=== PATIENT | female | born 1990 | race Caucasian/White ===

== ENCOUNTER 2019-05-26 18:08 | Emergency (ER) | payer MEDICAID, SELFPAY ==
[2019-05-26 18:10] VITALS: BP 160/97; PULSE 93; RESP 14; TEMP 36.6; O2SAT 100
[2019-05-26 18:29] LABS: Bilirubin Negative (Negative); Blood Negative (Negative); Clarity Clear (Clear); Glucose Negative (Negative); Ketones Negative (Negative); Leukocyte Esterase Negative (Negative); Nitrite Negative (Negative); Urobilinogen 0.2 EU/dL (Up TO 0.2); pH 6.5 (5-8)
--- NOTE | 2019-05-26 18:34 | ED.GENADUL_ITS ---
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 Clinical Impression: First trimester Primary Care Provider: Winifred Sierra ED Provider: Timmy Rod Home Meds and New Rx's Prescriptions: Continued folic acid 1 mg Tablet 4 mg PO DAILY RF: 0 PNV cmb#95-ferrous fumarate-FA [] 28 mg iron- 800 mcg Tablet 1 tab PO DAILY RF: 0 No Action levothyroxine 50 mcg Tablet 50 mcg PO DAILY RF: 0 lamotrigine [Lamictal] 100 mg Tablet 100 mg PO DAILY RF: 0 aripiprazole [Abilify] 5 mg Tablet 5 mg PO DAILY RF: 0 melatonin 3 mg Tablet,Disintegrating 3 mg PO HS PRNRF: 0 Discharge Instructions Additional Instructions: Please make an appointment to follow-up with obstetrics this week. Your beta hCG level today was 1835. Your urine did not show evidence of infection, there was no protein present. Home to rest tonight. Continue to push small, frequent sips of fluids to maintain hydration. Return for any acute concerns Medical Decision Making 29-year-old female presents from home with 2 days of intermittent episodes of urinary frequency, urgency, burning. States that she believes she is due to last menstrual. Approximately 2 months ago, positive home test 1 week ago. She has not had any vaginal bleeding nor abdominal discomfort. She is noted to have initial blood pressure 160/97. Otherwise unremarkable vital signs and reassuring exam. Urinalysis and screening beta hCG obtained. Urine does not show evidence of infection with negative leuk esterase, negative nitrates. Protein was negative as well. Beta hCG is 1835. Patient informed of results. She will followup with OB at [facility] as planned. HPI General Mode of arrival: ambulatory . Date/Time Provider Initiated Documentation: 05/26/19 18:09 . Limitations to Documentation: no limitations . Information obtained by: patient and family . History of Present Illness 29 year old F presents to the emergency department with the chief complaint of Increased urinary frequency and urgency over 2 days time. + home , described as mild, Quality is described as dull, and is localized to the pelvis. Patient reports no radiation. Patient started experiencing this day(s) and it has been constant. No relieving factors improve symptom(s), No exacerbating factors reported . Patient did receive the following treatments prior to arrival, none Related Data Home Medications Medication Instructions Recorded Confirmed PNV cmb#95-ferrous fumarate-FA 1 tab PO DAILY 05/26/19 05/26/19 [] aripiprazole [Abilify] 5 mg PO DAILY 05/26/19 05/26/19 folic acid 4 mg PO DAILY 05/26/19 05/26/19 lamotrigine [Lamictal] 100 mg PO DAILY 05/26/19 05/26/19 levothyroxine 50 mcg PO DAILY 05/26/19 05/26/19 melatonin 3 mg PO HS PRN 05/26/19 05/26/19 Allergies Allergy/AdvReac Type Severity Reaction Status Date / Time erythromycin base Allergy Unverified 05/26/19 18:15 sulfamethoxazole Allergy Unverified 05/26/19 18:15 [From Bactrim] trimethoprim [From Bactrim] Allergy Unverified 05/26/19 18:15 cigarette smoke AdvReac Mild head Unverified 07/22/15 13:28 congestion General 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 No recent illness. 6 systems reviewed and otherwise negative [facility] Social History Smoking/Tobacco Use Status: Never Alcohol Intake: never Drug use: Never Substance use type: does not use Do you feel safe at home: Yes Do you feel safe in your relationship?: Yes Exam Narrative Exam Narrative: GEN: awake, alert, oriented 3. Pleasant, well groomed, interactive. HEAD: Normocephalic, atraumatic ENT: Mucous membranes moist, oropharynx unremarkable, External ear exam unremarkable EYES: PERRL, EOMI NECK: Full ROM, no ALBERT, no menigismus CHEST/RESP: Nontender, clear to auscultation bilateral, no wheeze/rhonchi/rales CARDIOVASCULAR: RRR, no murmur, rub jany. 2+ Rad pulse bilateral ABDOMEN: Soft, nontender, no mass. +Bowel sounds EXT: Full ROM, no edema, no rash Neuro: Grossly normal neurologic exam, conversant, interactive. Psych: Speech fluent, thoughts congruent, affect normal Course Vital Signs Temperature 36.6 C 05/26/19 18:10 Pulse 93 H 05/26/19 18:10 Respiratory Rate 14 05/26/19 18:10 Blood Pressure 160/97 H 05/26/19 18:10 Pulse Oximetry 100 05/26/19 18:10 Temperature 36.6 C 05/26/19 18:10 Pulse 93 H 05/26/19 18:10 Respiratory Rate 14 05/26/19 18:10 Respiratory Effort Non-Labored 05/26/19 18:13 Blood Pressure 160/97 H 05/26/19 18:10 Blood Pressure Position Sitting 05/26/19 18:10 Pulse Oximetry 100 05/26/19 18:10 Pain Level 5 05/26/19 18:14 Lab/Test Results Lab/Test Results: Laboratory Tests Range/Units 05/26/19 18:23 Urine Color (Yellow) Yellow Urine Clarity (Clear) Clear Urine pH (5-8) 6.5 Ur Specific [place] (1.005-1.025) 1.010 Urine Protein (Negative) mg/dL Negative Urine Ketones (Negative) mg/dL Negative Urine Blood (Negative) Negative Urine Nitrite (Negative) Negative Urine Bilirubin (Negative) Negative Urine Urobilinogen (Up TO 0.2) EU/dL 0.2 Ur Leukocyte Esterase (Negative) Negative Urine Glucose (Negative) mg/dL Negative POC- Test(urine) Positive
[2019-05-26 19:29] LABS: HCG Quant, Pregnancy 1835 mIU/mL (1-3)
[2019-05-26 19:43] VITALS: BP 129/87; PULSE 85; RESP 18; O2SAT 99
== END 2019-05-26 19:45 | disposition home or self-care (01) ==
PROVIDERS: Emergency Provider Emergency Medicine; PCP Internal Medicine
DX: R35.0 Frequency of micturition; R03.0 Elevated blood-pressure reading, without diagnosis of hypertension; Z32.01 Encounter for pregnancy test, result positive
CPT/HCPCS: 36415; 81025; 99282; 81003; 84702

== ENCOUNTER 2020-04-30 23:52 | Inpatient (IN) | payer MEDICAID, SELFPAY ==
[2020-04-30 23:53] VITALS: BP 151/86; PULSE 88; RESP 16; TEMP 36.9; O2SAT 98
--- NOTE | 2020-04-30 23:58 | W.ED.GENAD ---
Discharge Plan Disposition Patient Disposition: [facility] INPATIENT Condition: Stable Discharge Details Chief Complaint: PsychEval Clinical Impression: Depressed, Suicidal ideations Primary Care Provider: Winifred Sierra ED Provider: Alis Steele Home Meds and New Rx's Prescriptions: No Action levothyroxine 50 mcg Tablet 50 mcg PO DAILY RF: 0 folic acid 1 mg Tablet 4 mg PO DAILY RF: 0 lamotrigine [Lamictal] 100 mg Tablet 150 mg PO DAILY RF: 0 aripiprazole [Abilify] 5 mg Tablet 5 mg PO DAILY RF: 0 PNV cmb#95-ferrous fumarate-FA [] 28 mg iron- 800 mcg Tablet 1 tab PO DAILY RF: 0 melatonin 3 mg Tablet,Disintegrating 3 mg PO HS PRNRF: 0 methylphenidate HCl [Concerta] 36 mg Tablet Extended Release 24hr 36 mg PO QAM RF: 0 albuterol sulfate 2.5 mg /3 mL (0.083 %) Solution For Nebulization 2.5 mg INHALATION Q4H PRNRF: 0 Flovent HFA 220 mcg/actuation Hfa Aerosol Inhaler 1 puff INHALATION BID RF: 0 Medical Decision Making <Broderick Haque, - Last Filed: 05/01/20 05:07> 30-year-old female with a past history of PTSD, depression, anxiety, seizure disorder, presents today for evaluation of suicidality. Patient is , keeps her medications locked up to prevent any overdosing, which she has tried to do in the past. She spends rest of her day with her [id number] who per care bed staff is verbally abusive. She has been at the care bed recently secondary to suicidality. This evening she became notably upset, was hitting her self on her shins and her head, stating that someone was touching her although no one was touching her. When confronted by staff she stated that she had a very focused plan on how she was going to kill herself but would not admit it to anyone what the plan details were. She also stated that she did not trust men and would not tell anyone about this. She denies taking any additional medications, she denies any recent drugs or alcohol. She denies any nausea vomiting diarrhea chest pain shortness of breath numbness tingling or weakness. No other complaints. She states that she has tried to cut herself in the past, but that is not her plan to kill herself tonight. She denies any auditory visual hallucinations. She has no other complaints at this time. Physical exam demonstrates mild bruising on the right paul, no evidence of trauma to the head. Multiple old scars that are completely healed on the arms and legs bilaterally. At this time with the patient's clear plan that she will not described to myself or staff, certainly does elicit concern. She states that she does want help. I do feel that she is a risk to her self and would benefit from admission evaluation by mental health specialist. Patient appears medically cleared for all intents and purposes at this time. We will look for potential admission and transfer options. 5 AM Patient has been seen and assessed by mental health, it is felt that transfer to an outpatient facility is best for this patient for further mental health evaluation. Currently the patient does want help. We will keep the patient here in the emergency department and mental health will in the morning for potential placement versus transfer options. The case will be signed out to my colleague Dr. Steele for reassessment and hopeful final disposition. <Alis Steele DO - Last Filed: 05/01/20 19:44> 0800 --Case endorsed to follow-up with mental health regarding placement. Patient is currently voluntary. 1400 --patient complaining of feelings of anxiety. A 0.5 mg dose of Ativan p.o. given. 1700 --Case discussed with mental health -patient has stated that she does not want to be stopped from harming herself and there is concern for her impulsivity and possible change in behavior so decision was made to EE. 1730 --Case discussed with hospitalist who accepts patient for admission. Patient has been appropriate and no acute complaints. Medical Records Medical records reviewed: Yes I reviewed the patient's medical records. HPI <Broderick Haque DO - Last Filed: 05/01/20 05:07> General Date/Time Provider Initiated Documentation: 04/30/20 23:54. HPI Narrative: 30-year-old female with a past history of PTSD, depression, anxiety, seizure disorder, presents today for evaluation of suicidality. Patient is , keeps her medications locked up to prevent any overdosing, which she has tried to do in the past. She spends rest of her day with her [id number] who per care bed staff is verbally abusive. She has been at the care bed recently secondary to suicidality. This evening she became notably upset, was hitting her self on her shins and her head, stating that someone was touching her although no one was touching her. When confronted by staff she stated that she had a very focused plan on how she was going to kill herself but would not admit it to anyone what the plan details were. She also stated that she did not trust men and would not tell anyone about this. She denies taking any additional medications, she denies any recent drugs or alcohol. She denies any nausea vomiting diarrhea chest pain shortness of breath numbness tingling or weakness. No other complaints. She states that she has tried to cut herself in the past, but that is not her plan to kill herself tonight. She denies any auditory visual hallucinations. She has no other complaints at this time. Related Data Home Medications Medication Instructions Recorded Confirmed PNV cmb#95-ferrous fumarate-FA 1 tab PO DAILY 05/26/19 05/01/20 [] aripiprazole [Abilify] 5 mg PO DAILY 05/26/19 05/01/20 folic acid 4 mg PO DAILY 05/26/19 05/01/20 lamotrigine [Lamictal] 150 mg PO DAILY 05/26/19 05/01/20 levothyroxine 50 mcg PO DAILY 05/26/19 05/01/20 melatonin 3 mg PO HS PRN 05/26/19 05/01/20 albuterol sulfate 2.5 mg INHALATION Q4H PRN 05/01/20 05/01/20 fluticasone propionate [Flovent 1 puff INHALATION BID 05/01/20 05/01/20 HFA] methylphenidate HCl [Concerta] 36 mg PO QAM 05/01/20 05/01/20 Allergies Allergy/AdvReac Type Severity Reaction Status Date / Time erythromycin base Allergy Unverified 05/01/20 00:07 sulfamethoxazole Allergy Unverified 05/01/20 00:07 [From Bactrim] trimethoprim [From Bactrim] Allergy Unverified 05/01/20 00:07 cigarette smoke AdvReac Mild head Unverified 05/01/20 00:07 congestion General SHAI: 3 Review of Systems <Broderick Haque DO - Last Filed: 05/01/20 05:07> All systems reviewed & are unremarkable except as noted in HPI and below PFSH <Broderick Haque DO - Last Filed: 05/01/20 05:07> Social History Smoking/Tobacco Use Status: Never Alcohol Intake: never Drug use: Never Substance use type: does not use Do you feel safe at home: Yes Do you feel safe in your relationship?: Yes Exam <Broderick Haque DO - Last Filed: 05/01/20 05:07> Narrative Exam Narrative: 1.Const: Well-nourished, Well-developed, appearing stated age 2.Eyes: PERRL, no conjunctival injection, and symmetrical lids. 3.ENT: Atraumatic external nose and ears. Moist MM. Neck: Symmetric, trachea midline, No thyromegaly. There is no evidence of raccoon eyes, aburto sign, CSF rhinorrhea, mastoid tenderness, cranial crepitus, hemotympanum, exophthalmos, or hyphema. Patient demonstrates intact dentition with no signs of tooth avulsion or fracture, no signs of jaw deformity, no evidence of a LeFort's fracture, with an intact palate, nose and orbital region. There is no evidence of a nasal septal hematoma. No proptosis. Jaw closes symmetrically. Airway is clear. 4.CVS: +S1/S2, No murmurs or gallops. Peripheral pulses 2+ and equal in all extremities. Brisk capillary refill in all extremities. 5.RESP: Unlabored respiratory effort. Clear to auscultation bilaterally. No wheezes rales or rhonchi 6.GI: Soft, Nontender/Nondistended, No hepatosplenomegaly. No guarding or rebound. 7.MSK: Normocephalic/Atraumatic, Extremities w/o deformity or ttp No cyanosis or clubbing, Normal movement of all extremities 8.Skin: Warm, Dry. No rashes or lesions. Mild bruise/contusion on her anterior paul on the right. 9.Neuro: supervisor cook house II-XII grossly intact. Sensation grossly intact, no focal neurologic deficits. 10.Psych: (AAO) x3. Appropriate mood and notably flat affect Sign Out <Broderick Haque DO - Last Filed: 05/01/20 05:07> Sign Out Data: Sign Out Comment: Depression, suicidal ideations. Medically cleared. Pending reevaluation by mental health and potential transfer versus placement. Last updated by Broderick Haque DO at 05/01/20 05:08
[2020-05-01 00:21] LABS: *AMPHETAMINES SCREEN URINE Negative (Negative); *BARBITURATES SCREEN URINE Negative (Negative); *BENZODIAZEPINES SCREEN URINE Negative (Negative); Cannabinoids THC Negative (Negative); Cocaine Screen,Urine Negative (Negative); METHADONE URINE SCREEN Negative (Negative); OPIATES URINE SCREEN Negative (Negative)
[2020-05-01 00:31] LABS: Tricyclic Antidepressants Negative (Negative)
[2020-05-01 02:43] LABS: Abs Immature Grans 0.04 k/cumm (0.0-0.09); Absolute Basophil Count 0.02 k/cumm (0.0-0.2); Absolute Lymphocyte Count 3.09 k/cumm (1.2-3.4); Absolute Monocyte Count 0.71 k/cumm (0.11-0.7); Absolute Neutrophil Count 5.47 k/cumm (1.2-6.7); Basophils % 0.2; Eosinophils % 1.1; HGB 13.4 g/dL (12.0-15.5); Immature Grans % 0.4 %; Lymphocytes % 32.8; Mean Corp. HGB Concentration 33.5 g/dL (32.0-36.0); Mean Corpuscular Hemoglobin 28.6 pg (27.0-33.0); Mean Corpuscular Volume 85.5 fL (80-95); Mean Platelet Volume 10.2 fL (8.0-11.0); Monocytes % 7.5; Platelet Count 279 x1000/uL (130-400); RBC 4.68 m/cumm (4.00-5.20); RBC Distribution Width 12.7 % (11.7-14.6); White Blood Cell Count 9.43 k/cumm (4.4-10.8)
[2020-05-01 03:03] LABS: Acetaminophen < 2 ug/mL (10-30); Salicylate < 2.8 mg/dL (2.8-20.0)
[2020-05-01 03:04] LABS: Anion Gap 9.1 mmol/L (3-11); BUN 13 mg/dL (7-18); CO2 26.9 mmol/L (21.0-32.0); CREATININE 0.84 mg/dL (0.55-1.02); Calcium 9.6 mg/dL (8.5-10.1); Chloride 102 mmol/L (98-107); Glucose 104 mg/dL (74-106); Potassium 3.9 mmol/L (3.5-5.1); Sodium 138 mmol/L (136-145); TSH 2.26 uIU/mL (0.36-3.74)
[2020-05-01 03:16] LABS: ETHANOL BLOOD < 3.0 mg/dL (<3)
--- NOTE | 2020-05-01 04:51 | NUR.NOTE ---
Nursing Note: phone numbers for pt use per mental health ( Kristyn)- [phone]- Nathalia @ [facility] [phone] - Kristyn Meehan
--- NOTE | 2020-05-01 08:28 | CMPROGNOTE_ITS ---
- If Service Date Differs Date of service: 05/01/20 Time of Service: 08:28 Care Management Progress Note Chief Complaint: Stacey is a 30 year old female who lives in [place] with her , Chucky. She receives services through [facility] DUPLICATOR PUNCH OPERATOR program in [place] and her supervisor case loading is Ashley Nolen. Stacey has a history of PTSD, depression and anxiety. She has been staying at the [facility] Care Bed since evening due to suicidality but on Friday, she endorsed worsening suicidal thoughts and flashbacks. She began punching herself, banging her head, and threatening to hang herself with the TV power cord. She was subsequently transported to the ED via ambulance where she was assessed by an [facility] crisis screener. The plan was made to reassess Stacey in the morning and to decide how to proceed at that time. This morning, Stacey was reassessed by her supervisor case loading, Ashley Nolen. She expressed a desire to return to the Care Bed during that assessment. Ashley is currently exploring if the Care Bed is still an option available to Stacey. VOLUNTARY FOR INPATIENT PSYCHIATRIC STABILIZATION. Patient is appropriate in all interactions since arriving at [facility]; Pt has demonstrated appropriate coping and communication skills, has articulated her needs and concerns and is fully engaged during staff interactions. Safety plan has been established with patient, and care team, to adhere to patient goals, identify restrictions based on behavioral status, address nutrition, and determine allowed personal belongings, tools for hygiene and personal care. Determine level of activity including ambulation, level of supervision, visitors, and determine privileges based on behaviors and level of engagement by pt. SAFETY PLAN: 1. Will remain on suicide precautions. In Paper Clothes 2. Will remain in room under direct supervision of one-on-one staff at all times provided by [facility]; CIRILO, MATERIALS DEVELOPMENT ENGINEER medical services coordinator. 3. May have paper cups, plates, finger foods as well as a cardboard spoon with which to eat meals. 4. Follow [facility] Management of the Admitted Behavioral Health Patient policy. 5. Comfort bath system only while in the ED. If moved to Med/Surg, patient will be allowed to shower with supervision at nursing discretion. 6. No personal belongings 7. Visitors-No visitors at this time 8. Activities: Soft tip markers, paper, and other activities at nursing discretion. If moved to Med/Surg, patient will be allowed television. 9. Bathroom privileges: While in the ED, must be accompanied by staff. If patient is moved to Med/Surg, she will be allowed to use the bathroom in her room without supervision. 10. Phone: No phone privileges at this time. 11. Due to VOLUNTARY status, if patient wishes to leave [facility], the [facility] sheet metal worker must be contacted to re-evaluate patient prior to patient exiting the building. Patient is currently voluntarily at [facility] and seeking inpatient admission when a bed becomes available. [facility] Frontline Vat Operator will continue seeking placement. Please contact the Meter Supervisor Animal Feeder ([phone]) and [facility] Vat Operator ([phone]) for any needed changes in the Safety Plan. Safety plan has been provided to interdepartmental care team.
--- NOTE | 2020-05-01 11:25 | NUR.NOTE ---
per mental health, they are checking to see if patient can return to the carebed and have her meds managed there or if she needs to go elsewhere.
[2020-05-01] MEDS: LORazepam 0.5 MG TAB PO (14:37)
[2020-05-01 16:02] VITALS: BP 134/87; PULSE 87; RESP 18; TEMP 36.7; O2SAT 96
--- NOTE | 2020-05-01 16:40 | PDOC.MHCN ---
Date of service: 05/01/20 Time of Service: 16:41 Mental Health Crisis Note Presenting Issue How did you arrive at the ED and why did you come: Bibiana came to the ER via ambulance last night/early this am for SI and unwilling to safety plan with CARE Bed team. Precipitating Factors Stacey endorses intense SI with plan but will not share those plans. She did tell Emergency Clinician last night that she had plans to slit her wirist. When asked about this today she said That is not really my detailed plan. She is not showing any signs of delusions. Disposition BEHAVIOR: Stacey is pleasant but very guarded. She has been a non-behavioral patient since she arrived in the ER early this am. She is not willing to go voluntarily to a hospital I don't want to be stopped. Even if she were to say she would go voluntarily I have concerns she would not follow through which would put her at risk. EYE CONTACT: Eye contact is fair and appropriate. MOOD: Stacey presents as depressed. AFFECT: Affect is flat with not range in expressions. APPETITE: Bibiana did eat lunch but refused breakfast. SLEEP(trouble falling/staying asleep: Sleep is unknown but reported by SKIP MINER BLASTING that she has significant nightmares. Plan Due to Stacey's level of SI and unwillingness to share or safety plan she has been placed on EE status pending a second cert. Signature Clinician's Name/Title: Brittany Ramon MS, [facility] Emergency Services Clinician
--- NOTE | 2020-05-01 18:19 | HPE_ITS ---
Date of service: 05/01/20 Time of Service: 18:20 Assessment and Plan Assessment and plan (1) Suicidal ideations: Status: Acute Assessment and plan: SI, here on EE status. No medical issues. Will continue usual meds pending placement. Note that med list includes vitamins. Patient states this is not current. History of Present Illness History of Present Illness Chief Complaint: SI Narrative: 30 female with multiple psychiatric dxx, seen early this AM for suicidal ideation. Evasive as to whether there was any plan. Has been medically cleared. Pending bed availabi lity (and COVID status) is admitted. Note here on EE status. Review of Systems All systems reviewed & are unremarkable except as noted in HPI and below PFSH Social History Smoking/Tobacco Use Status: Never Alcohol Intake: never Drug use: Never Substance use type: does not use Do you feel safe at home: Yes Do you feel safe in your relationship?: Yes Meds Home Medications and Allergies Home Medications Medication Instructions Recorded Confirmed Type PNV cmb#95-ferrous fumarate-FA 1 tab PO DAILY 05/26/19 05/01/20 History [] aripiprazole [Abilify] 5 mg PO DAILY 05/26/19 05/01/20 History folic acid 4 mg PO DAILY 05/26/19 05/01/20 History lamotrigine [Lamictal] 150 mg PO DAILY 05/26/19 05/01/20 History levothyroxine 50 mcg PO DAILY 05/26/19 05/01/20 History melatonin 3 mg PO HS PRN 05/26/19 05/01/20 History albuterol sulfate 2.5 mg INHALATION Q4H PRN 05/01/20 05/01/20 History fluticasone propionate [Flovent 1 puff INHALATION BID 05/01/20 05/01/20 History HFA] methylphenidate HCl [Concerta] 36 mg PO QAM 05/01/20 05/01/20 History Allergies Allergy/AdvReac Type Severity Reaction Status Date / Time erythromycin base Allergy Unverified 05/01/20 00:07 sulfamethoxazole Allergy Unverified 05/01/20 00:07 [From Bactrim] trimethoprim [From Bactrim] Allergy Unverified 05/01/20 00:07 cigarette smoke AdvReac Mild head Unverified 05/01/20 00:07 congestion Exam Narrative Exam Narrative: 134/87, 87, 36.7, 18, 96% RA. HEENT atraumatic; neck supple; lungs clkear; heart RRR w/o mrg; abdomen soft and NT; extremities w/o edema; neuro Ox3, flat affect, moves all 4s. Results Labs Result diagrams: 05/01/20 02:35 05/01/20 02:35 Labs: Laboratory Results - last 24 hr 05/01/20 05/01/20 05/01/20 00:01 02:35 02:35 WBC RBC Hgb Hct MCV MCH MCHC RDW Plt Count MPV Immature Gran % Neutrophils % Lymphocytes % Monocytes % Eosinophils % Basophils % Absolute Neutrophils Absolute Lymphocytes Absolute Monocytes Absolute Eosinophils Absolute Basophils Sodium 138 Potassium 3.9 Chloride 102 Carbon Dioxide 26.9 Anion Gap 9.1 BUN 13 Creatinine 0.84 Estimated GFR/1.73 m2 >= 60.00 Glucose 104 Calcium 9.6 TSH 2.26 Salicylates < 2.8 Urine Opiates Screen Negative Urine Methadone Screen Negative Acetaminophen < 2 Ur Barbiturates Screen Negative Ur Tricyclics Screen Negative Ur Amphetamines Screen Negative U Benzodiazepines Scrn Negative Urine Cocaine Screen Negative Ur THC Screen Negative Ethyl Alcohol < 3.0 05/01/20 02:35 WBC 9.43 RBC 4.68 Hgb 13.4 Hct 40.0 MCV 85.5 MCH 28.6 MCHC 33.5 RDW 12.7 Plt Count 279 MPV 10.2 Immature Gran % 0.4 Neutrophils % 58.0 Lymphocytes % 32.8 Monocytes % 7.5 Eosinophils % 1.1 Basophils % 0.2 Absolute Neutrophils 5.47 Absolute Lymphocytes 3.09 Absolute Monocytes 0.71 H Absolute Eosinophils 0.10 Absolute Basophils 0.02 Sodium Potassium Chloride Carbon Dioxide Anion Gap BUN Creatinine Estimated GFR/1.73 m2 Glucose Calcium TSH Salicylates Urine Opiates Screen Urine Methadone Screen Acetaminophen Ur Barbiturates Screen Ur Tricyclics Screen Ur Amphetamines Screen U Benzodiazepines Scrn Urine Cocaine Screen Ur THC Screen Ethyl Alcohol Last Vital Signs Temp 36.7 C 05/01/20 16:02 Pulse 87 05/01/20 16:02 Resp 18 05/01/20 16:02 BP 134/87 05/01/20 16:02 Pulse Ox 96 05/01/20 16:02 COVID-19 Screening Have you,or household,traveled outside [place] in last 14 days?: No Had IN PERSON contact w/suspected or confirmed C-19 person: No
[2020-05-01] MEDS: Ibuprofen 600 MG TAB (18:48)
[2020-05-01 19:39] VITALS: BP 136/93; PULSE 90; RESP 18; TEMP 36; O2SAT 100
[2020-05-01 20:00] VITALS: BP 113/81; PULSE 90; RESP 18; TEMP 36.8; O2SAT 97
[2020-05-01 20:02] VITALS: BP 113/81; PULSE 90; RESP 18; TEMP 36.8; O2SAT 97
[2020-05-02] LABS: COVID-19 RT-PCR UVMMC Result Negative (Negative)
[2020-05-02] MEDS: Folic Acid 1 MG TAB 4 MG PO (08:34)
[2020-05-02] MEDS: Levothyroxine 50 MCG TAB PO (08:35)
[2020-05-02] MEDS: ARIPiprazole 5 MG TAB PO (08:35)
[2020-05-02] MEDS: lamoTRIgine 100 MG TAB 150 MG PO (08:35)
[2020-05-02 08:45] VITALS: BP 120/86; PULSE 94; RESP 16; TEMP 36.7; O2SAT 96
--- NOTE | 2020-05-02 10:04 | PDOC.CMPRO ---
Care Management Progress Note Stacey repeated self-harm behavior today, punching herself in the forehead and slamming her head backward against the wall. Today, she was provided medication prior to the event, and began hitting herself without behavioral escalation prior. She was sitting on the floor with her head in her hands and began hitting herself. When restrained, she said please just kill me. Thus far, she has not presented with any aggression towards others, only herself. She was unhappy about being held involuntarily and had just discussed with [facility] prior to CODE REYNAGA. [facility] continues to coordinate placement; please refer to note for further information. INVOLUNTARY FOR INPATIENT PSYCHIATRIC STABILIZATION. Patient was appropriate this morning during CM assessment, she made good eye contact, and though she had low affect she was forthcoming with information. This afternoon, patient was unable to emotionally regulate resulting in a severe panic attack and self harm requiring physical and chemical intervention. Safety plan has been established with patient, and care team, to adhere to patient goals, identify restrictions based on behavioral status, address nutrition, and determine allowed personal belongings, tools for hygiene and personal care. Determine level of activity including ambulation, level of supervision, visitors, and determine privileges based on behaviors and level of engagement by pt. SAFETY PLAN: 1. Will remain on suicide precautions. In Paper Clothes 2. Will remain in room under direct supervision of one-on-one staff at all times provided by C[employer]; CIRILO, TEXT TRANSCRIBER drawing machine operator. 3. May have paper cups, plates, finger foods as well as a cardboard spoon with which to eat meals. 4. Follow [facility] Management of the Admitted Behavioral Health Patient policy. 5. Comfort bath system only while in the ED. If moved to Med/Surg, patient will be allowed to shower with supervision at nursing discretion. 6. No personal belongings 7. Visitors-No visitors at this time 8. Activities: Soft tip markers, paper, and other activities at nursing discretion. If moved to Med/Surg, patient will be allowed television and remote. 9. Bathroom privileges in her room without supervision. 10. Phone: limited to legal contact at this time. 11. Due to INVOLUNTARY status, patient will remain at [facility] until disposition determined by [facility]. Patient is currently involuntarily at [facility] and seeking inpatient admission when a bed becomes available. [facility] Frontline Acupuncture Physician will continue seeking placement. Please contact the Workers Compensation Attorney Electrical Superintendent ([phone]) and [facility] Acupuncture Physician ([phone]) for any needed changes in the Safety Plan. Safety plan has been provided to interdepartmental care team.
--- NOTE | 2020-05-02 10:58 | MHPN_ITS ---
Date of service: 05/02/20 Time of Service: 10:58 Mental Health Crisis Note Presenting Issue How did you arrive at the ED and why did you come: Stacey arrived early yesterday morning from CARE Bed after reporting SI wiht plan and would not contract for safety. Precipitating Factors Stacey still reports SI rating it on a scale of 0-10 at a 10. She is still unwilling to share her plans as to how she would act this out. She denied HI and there are no signs of delusions. Disposition BEHAVIOR: Stacey is cooperative but has little engagement with the interview. She continues to be a non-behavior Patient. EYE CONTACT: She makes good eye contact. MOOD: Stacey is depressed and endorses SI. AFFECT: Chrsitina appears tired wiht a flat affect with no change in emotions. APPETITE: Stacey is reported to have eaten 50% of her breakfast this am. SLEEP(trouble falling/staying asleep: Stacey reported an okay sleep and denied nightmares. Plan Stacey reported that she would like to speak to her today if possible. Discussed concerns of how this upset her yesterday but would speak with Care Management to come up with a plan. Care Management agreed to allow supervised and if she starts to get upset the call will end. They will update care plan. This clinician called [facility] her referral is still out for review. I will call back in a couple hours. Outreached to [facility] her referral, they report was not received even though it was sent twice yesterday. Signature Clinician's Name/Title: Brittany Ramon MS, [facility] [place] Emergency Services Clinician
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
[2020-05-02] MEDS: LORazepam 2 MG/ML VIAL (13:25)
[2020-05-02] MEDS: LORazepam 2 MG/ML VIAL IM (13:58)
[2020-05-02] MEDS: diphenhydrAMINE 50 MG/ML VIAL IM (14:20)
[2020-05-02] MEDS: Haloperidol 5 MG/ML VIAL IM (14:20)
--- NOTE | 2020-05-02 14:58 | NUR.NOTE ---
Nursing Note: 1300 Patient observed to have increased activity and restlessness. Entered room to assess patient. Patient verbalized increasing anxiety. Patient refused to discuss cause of anxiety. Offered patient the opportunity to talk a with female staff member, patient agreed. Notified CMGT Rosa Maria Frazier of patient's behaviour and requested intervention. Rosa Maria entered patient room at 1305. Kenyon Frazier called by Sentry at 1314. Patient agitated hyperventilating, hitting self and wall. Patient placed in restraints, verbal order from provider 2 mG ativan administered IM, Left Deltoid. Kenyon frazier completed at 1340. Sentry called for assistance at 1355, patient pulled left hand free of restraints and hit herself in the head 4 times per sentry report. Provider consulted, provider ordered additional medication for patient safety. 5 mG Haldol IM, 50 mG Benadryl IM.
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
--- NOTE | 2020-05-02 17:19 | W.INMHPGNOTE ---
Date of service: 05/02/20 Time of Service: 17:19 Mental Health Crisis Note Presenting Issue How did you arrive at the ED and why did you come: Stacey arrived at the ER 2 mornings ago for SI and not being able/willing to contract for safety. Precipitating Factors Stacey endorses still this afternoon while in her 2nd Cert to Dr. Matthews that she is SI and will not share her plan. She states she does not want to live anymore and is tired of hurting. Disposition BEHAVIOR: Stacey is sedated from a B52 earlier this afternoon after she went into a severe panic attack as reported by Jigna Xiao for [facility]. Rosa Maria reported that this looked like her face turning bright red and shallow breathing to the point they needed to put a respirator on her for fear she was not getting enough oxygen. Rosa Maria reported that she was initially give Ativan but this was not helpful. Her panic attack is described as having possible flashbacks and felt that she was being touched. She started to punch herself in the forehead violently and when restrained she used the other hand. Once that hand was restrained she started to bang her head on the wall. She was able ot answer questions of SI and not able to keep herself safe during the 2nd cert. EYE CONTACT: Minimal due to being sedated MOOD: Tired and still depressed with SI. AFFECT: Flat and tired. APPETITE: Not assessed SLEEP(trouble falling/staying asleep: Sleeping when we arrived due to B52. Plan Stacey will stay on EE status until she is placed. Dr. Matthews feels he has enough to complete the second certification. Stacey will be re-evaluated tomorrow. Signature Clinician's Name/Title: Brittany Ramon MS, [facility] Emergency Services Clinician
--- NOTE | 2020-05-03 00:28 | NUR.NOTE ---
Nursing Note: At Midnight, Pt woke up from the time was sedated. Puffer at 2000 , was administered at this time. Offered dinner, sat at the edge of the bed with calm, relaxed behavior but appears sad. No changed on suicidal thoughts remains intact plans during interview. CPSO on the sight. Continue to monitor.
--- NOTE | 2020-05-03 07:19 | NUR.NOTE ---
pt sleeping up until 7am so handoff given to day shift RN Sita and belt sewer RN did not wake up patient for levothyroxine d/t her code stokes episode yesterday and wanting to allow her to rest and patient appeared to be sleeping deeply.Nursing Note:
[2020-05-03] MEDS: Levothyroxine 50 MCG TAB PO (08:04)
[2020-05-03] MEDS: ARIPiprazole 5 MG TAB PO (08:04)
[2020-05-03] MEDS: Folic Acid 1 MG TAB 4 MG PO (08:04)
[2020-05-03] MEDS: lamoTRIgine 100 MG TAB 150 MG PO (08:05)
[2020-05-03 08:55] VITALS: BP 121/77; PULSE 89; RESP 16; TEMP 36.7; O2SAT 96
[2020-05-03] MEDS: LORazepam 2 MG/ML VIAL IM (10:02)
--- NOTE | 2020-05-03 10:24 | PHACLINREV_ITS ---
Pharmacy Admission Review - Admission Clinical Review (Last Reviewed 05/01/20 @ 18:22 by Tomas Zee MD) Depressed (Acute) Suicidal ideations (Acute) erythromycin base Allergy (Unverified 05/01/20 00:07) sulfamethoxazole [From Bactrim] Allergy (Unverified 05/01/20 00:07) trimethoprim [From Bactrim] Allergy (Unverified 05/01/20 00:07) cigarette smoke Adverse Reaction (Mild, Unverified 05/01/20 00:07) head congestion Height 5 ft 3 in Weight 104.326 kg - Renal Dosing Renal Dosing: BUN 13 mg/dL (7-18) 05/01/20 02:35 Creatinine 0.84 mg/dL (0.55-1.02) 05/01/20 02:35 Medications needing adjustments: N/A - Anticoagulation Anticoagulation: Hgb 13.4 g/dL (12.0-15.5) 05/01/20 02:35 Hct 40.0 % (36.0-46.0) 05/01/20 02:35 Plt Count 279 x1000/uL (130-400) 05/01/20 02:35 Creatinine 0.84 mg/dL (0.55-1.02) 05/01/20 02:35 DVT Prohphylaxis: N/A Medications: Aspirin Therapeutic Anticoagulation: N/A - Opiate Usage Evaluate Pain Scale/Pains Meds: N/A - Relevant Labs Sodium 138 mmol/L (136-145) 05/01/20 02:35 Potassium 3.9 mmol/L (3.5-5.1) 05/01/20 02:35 Chloride 102 mmol/L (98-107) 05/01/20 02:35 Electrolytes, C-Reactive P, ESR: Reviewed - DM Control DM Control: Glucose 104 mg/dL (74-106) 05/01/20 02:35 - BP Control BP Control: Blood Pressure 121/77 If elevated: Reviewed - Qtc Review If Elevated: N/A - IV to PO Switch IV Medications: Reviewed - Home Meds Home Med List reviewed: Intervened (Per Dr. Zee's assessment with pt the vitamins is no longer current -- will remove from home med list) Relevent Home Meds Not ordered & why?: Concerta (methylphenidate) being held due to SI per note from [facility] - Current meds Current Medication Order Review: Reviewed
[2020-05-03] MEDS: LORazepam 1 MG TAB 2 MG PO (10:43)
--- NOTE | 2020-05-03 11:34 | W.INMHPGNOTE ---
Date of service: 05/03/20 Time of Service: 11:34 Mental Health Crisis Note Presenting Issue How did you arrive at the ED and why did you come: Stacey arrived via ambulance early Friday morning due to SI with plan. Precipitating Factors Stacey reports she is still SI today. She is not showing any signs of delusions. Disposition BEHAVIOR: Stacey is sitting it appears on the floor in her room. She has her hands pulled up to her mouth in fists and rocking back and forth. She reports she is having a similar experience as yesterday when she required chemical restraints but it is a little easier today. [facility] and Stacey reported that she has gotten PO and IM Ativan this am. The hope as getting this more regularly will help her not to have an episode as she did yesterday. EYE CONTACT: Eye contact if poor today. MOOD: Stacey looks very anxious today. AFFECT: Scared and anxious. APPETITE: Stacey refused breakfast this am only drinking a juice. SLEEP(trouble falling/staying asleep: Stacey slept well last night. Plan This clinician will continue to seek placement. Signature Clinician's Name/Title: Brittany Ramon MS, [facility] Emergency Services Clinician
[2020-05-03] MEDS: diphenhydrAMINE 25 MG CAP 50 MG PO (11:36)
--- NOTE | 2020-05-03 11:51 | PGE_ITS ---
Date of Service Date of service: 05/03/20 Time of Service: 11:51 Assessment and Plan Assessment and plan (1) Suicidal ideations: Status: Acute Assessment and plan: case management following. mental health following EE pending for suicidal ideation. medically stable and will be discharged to inpatient psychiatric placement. Subjective Subjective Interval history since last seen: I saw adelina approx 30 minutes prior as she was reporting anxiety. she was sitting on her bed, appeared in no distress, not making eye contact but responding to my questions. She denied any physical pain. She states she did not eat breakfast but it was because she did not feel like it. She denied any abdominal pain nausea or vomiting or diarrhea or constipation. Her respirations were even and unlabored her skin pink warm dry and well perfused. She was agreeable to taking Ativan 2 mg p.o. for her symptoms which was administered. She continued to escalate and did require Ativan 2 mg IM and did take 50 mg of oral Benadryl. Ultimately at 1150 a carmine stokes was called for patient safety. I returned to the room to evaluate her. She was not directable. She stated someone just kill me. She was placed in four- point neoprene restraints and given 5 mg of IM Haldol. She is now hyperventilating with a respiratory rate of 50 or greater. A nonrebreather mask was placed over her mouth and nose to avoid hyperventilation syndrome. Staff remained at her bedside to ensure safety. Exam Const General: acute distress (psychiatric) severe, in distress and anxious Nutritional Appearance: obese Limitations: behavioral limitations HENMT Head: normal to inspection, normocephalic and atraumatic Mouth: oral mucosae normal Resp Effort & Inspection: normal respiratory effort Auscultation: clear to auscultation bilaterally Cardio Rate: regular rate Rhythm: regular rhythm GI Inspection: normal to inspection Palpation: soft Auscultation: normal bowel sounds Skin Lesions: lesion noted (left forearm with extensive scars from cutting. ) Rashes: no rashes Neuro General: patient awake and moves all extremities Cognition: abnormal cognition (having flash back, hyperventilating, not following commands) Motor: muscle tone normal throughout and strength 5/5 throughout Extrem General: normal to inspection and full ROM Psych Appearance: disheveled Mental Status: other Mood: labile mood and other Affect: anxious affect Attitude: avoids eye contact and refuses to answer Thought Content: phobias Insight: poor Judgment: poor Objective Objective Clinical Data: Vital Signs Temperature 36.7 C 05/03/20 08:55 Temperature Source Tympanic 05/03/20 08:55 Pulse 89 05/03/20 08:55 Pulse Rhythm Regular 05/03/20 09:32 Respiratory Rate 16 05/03/20 08:55 Respiratory Effort 05/03/20 09:32 Respiratory Depth Normal 05/03/20 09:32 Respiratory Pattern Normal 05/03/20 09:32 Blood Pressure 121/77 05/03/20 08:55 Blood Pressure Position Sitting 04/30/20 23:53 Pulse Oximetry 96 05/03/20 08:55 Oxygen Delivery Method Room Air 05/03/20 08:55 Oxygen Flow Rate 0 05/03/20 08:55 Pain Level 0 05/03/20 08:55 Comment 05/03/20 08:55 Intake & Output 05/02/20 05/02/20 05/03/20 11:59 23:59 11:59 Intake Total 240 / 480 240 / 480 Balance 240 / 480 240 / 480 Intake: Oral 240 / 480 240 / 480 Laboratory Results WBC 9.43 k/cumm (4.4-10.8) 05/01/20 02:35 RBC 4.68 m/cumm (4.00-5.20) 05/01/20 02:35 Hgb 13.4 g/dL (12.0-15.5) 05/01/20 02:35 Hct 40.0 % (36.0-46.0) 05/01/20 02:35 MCV 85.5 fL (80-95) 05/01/20 02:35 MCH 28.6 pg (27.0-33.0) 05/01/20 02:35 MCHC 33.5 g/dL (32.0-36.0) 05/01/20 02:35 RDW 12.7 % (11.7-14.6) 05/01/20 02:35 Plt Count 279 x1000/uL (130-400) 05/01/20 02:35 MPV 10.2 fL (8.0-11.0) 05/01/20 02:35 Immature Gran % 0.4 % 05/01/20 02:35 Neutrophils % 58.0 05/01/20 02:35 Lymphocytes % 32.8 05/01/20 02:35 Monocytes % 7.5 05/01/20 02:35 Eosinophils % 1.1 05/01/20 02:35 Basophils % 0.2 05/01/20 02:35 Absolute Neutrophils 5.47 k/cumm (1.2-6.7) 05/01/20 02:35 Absolute Lymphocytes 3.09 k/cumm (1.2-3.4) 05/01/20 02:35 Absolute Monocytes 0.71 k/cumm (0.11-0.7) H 05/01/20 02:35 Absolute Eosinophils 0.10 k/cumm (0.0-0.7) 05/01/20 02:35 Absolute Basophils 0.02 k/cumm (0.0-0.2) 05/01/20 02:35 Sodium 138 mmol/L (136-145) 05/01/20 02:35 Potassium 3.9 mmol/L (3.5-5.1) 05/01/20 02:35 Chloride 102 mmol/L (98-107) 05/01/20 02:35 Carbon Dioxide 26.9 mmol/L (21.0-32.0) 05/01/20 02:35 Anion Gap 9.1 mmol/L (3-11) 05/01/20 02:35 BUN 13 mg/dL (7-18) 05/01/20 02:35 Creatinine 0.84 mg/dL (0.55-1.02) 05/01/20 02:35 Estimated GFR/1.73 m2 >= 60.00 (mL/min/1.73m2) 05/01/20 02:35 Glucose 104 mg/dL (74-106) 05/01/20 02:35 Calcium 9.6 mg/dL (8.5-10.1) 05/01/20 02:35 TSH 2.26 uIU/mL (0.36-3.74) 05/01/20 02:35 Salicylates < 2.8 mg/dL (2.8-20.0) 05/01/20 02:35 Urine Opiates Screen Negative (Negative) 05/01/20 00:01 Urine Methadone Screen Negative (Negative) 05/01/20 00:01 Acetaminophen < 2 ug/mL (10-30) 05/01/20 02:35 Ur Barbiturates Screen Negative (Negative) 05/01/20 00:01 Ur Tricyclics Screen Negative (Negative) 05/01/20 00:01 Ur Amphetamines Screen Negative (Negative) 05/01/20 00:01 U Benzodiazepines Scrn Negative (Negative) 05/01/20 00:01 Urine Cocaine Screen Negative (Negative) 05/01/20 00:01 Ur THC Screen Negative (Negative) 05/01/20 00:01 Ethyl Alcohol < 3.0 mg/dL (<3) 05/01/20 02:35 COVID-19 PCR Negative (Negative) 05/01/20 02:33 Nasopharyn COVID-19 PCR Not Applicable 05/01/20 02:33 Ref Test Perform Site [facility] lab 05/01/20 02:33
[2020-05-03] MEDS: Haloperidol 5 MG/ML VIAL (11:54)
--- NOTE | 2020-05-03 15:40 | W.INMHPGNOTE ---
Date of service: 05/03/20 Time of Service: 15:40 Mental Health Crisis Note Presenting Issue How did you arrive at the ED and why did you come: Stacey arrived eaerly Friday morning for SI wiht plan and inabilty to safety plan. Precipitating Factors Stacey still endorses SI and won't share plans. Disposition BEHAVIOR: Stacey is sleeping when we enter the room. She wakes fairly easily when spoken too. She is even less engaged due to being tired. Decorating Equipment Setter reported that she did have another episode today but it was not as severe as the last and it appeared she brought it on herself. EYE CONTACT: Eye contact is minimal. MOOD: Stacey appears depressed. AFFECT: Affect is flat and tired. APPETITE: Stacey has not eaten since yesterday only drinking a glass of juice for breakfast. She states she is not hungry. SLEEP(trouble falling/staying asleep: Stacey is sleeping fine. Plan Will re-evaluate in the am and continue to find placement. Signature Clinician's Name/Title: Brittany Ramon MS, [facility] Emergency Services Clinician
[2020-05-03 17:28] VITALS: BP 111/78; PULSE 89; RESP 18; TEMP 36.5; O2SAT 93
[2020-05-04 00:46] VITALS: BP 120/90; PULSE 88; RESP 18; TEMP 36.1; O2SAT 96
[2020-05-04 08:13] VITALS: BP 118/82; PULSE 90; RESP 20; TEMP 36.8; O2SAT 96
[2020-05-04] MEDS: lamoTRIgine 100 MG TAB 150 MG PO (08:22)
[2020-05-04] MEDS: LORazepam 1 MG TAB 2 MG PO ×3 (08:23→15:43)
[2020-05-04] MEDS: Folic Acid 1 MG TAB 4 MG PO (08:23)
[2020-05-04] MEDS: Levothyroxine 50 MCG TAB PO (08:23)
[2020-05-04] MEDS: ARIPiprazole 5 MG TAB PO (08:23)
[2020-05-04] MEDS: diphenhydrAMINE 25 MG CAP 50 MG PO ×2 (08:23→14:00)
--- NOTE | 2020-05-04 12:34 | W.INMHPGNOTE ---
Date of service: 05/04/20 Time of Service: 12:34 Mental Health Crisis Note Presenting Issue How did you arrive at the ED and why did you come: Stacey arrived on 05/01/20 for SI with plan and unwilling to safety plan. Precipitating Factors Stacey continues to endorses SI rating her SI a 10 on a scale of 0-10. She reported she will not share her plan. Disposition BEHAVIOR: Stacey is sitting on her bed alert and engaged this am. She is not happy that she may have to stay through the weened at the hospital due to bed availability being at a low. She asked if she could just go home. We discussed how this would not be an option and reasons why. She reports she is doing the same and that she finds the attivan is helping her to be able to control her panic attacks. EYE CONTACT: Eye contact is good MOOD: Mood is still depressed but more engaged today. AFFECT: Affect is little more responsive and appropriate this am. APPETITE: Stacey did eat some breakfast SLEEP(trouble falling/staying asleep: Stacey said her sleep is on and off. Plan Catie will speak with nurse about phone call to and if agreed upon she may get a limited call that is supervised and future calls are dependant on her behaviors after as well. No beds available today unless [facility] reviews updated info and accepts. Signature Clinician's Name/Title: Brittany Ramon MS, [facility] Emergency Services Clinician
--- NOTE | 2020-05-04 13:29 | W.PM.PROGNOT ---
Date of Service Date of service: 05/04/20 Time of Service: 13:30 Assessment and Plan Assessment and plan (1) Suicidal ideations: Start date: 05/04/20 Start time: 13:31 Status: Acute Assessment and plan: case management following. mental health following EE pending for suicidal ideation. medically stable and will be discharged to inpatient psychiatric placement. above case discussed with Dr. Dutton who is in agreement Subjective Subjective Patient reports: other Interval history since last seen: Starting to get anxious upon evaluation, continue to have SI and HI. Pacing, but cooperative. Exam Const General: acute distress (psychiatric) severe, in distress and anxious Nutritional Appearance: obese Limitations: behavioral limitations HENMT Head: normal to inspection, normocephalic and atraumatic Mouth: oral mucosae normal Resp Effort & Inspection: normal respiratory effort Auscultation: clear to auscultation bilaterally Cardio Rate: regular rate Rhythm: regular rhythm GI Inspection: normal to inspection Palpation: soft Auscultation: normal bowel sounds Skin Lesions: lesion noted (left forearm with extensive scars from cutting. ) Rashes: no rashes Neuro General: patient awake and moves all extremities Cognition: abnormal cognition (having flash back, hyperventilating, not following commands) Motor: muscle tone normal throughout and strength 5/5 throughout Extrem General: normal to inspection and full ROM Psych Appearance: disheveled Mental Status: other Mood: labile mood and other Affect: anxious affect Attitude: avoids eye contact and refuses to answer Thought Content: phobias Insight: poor Judgment: poor Objective Objective Clinical Data: Vital Signs Temperature 36.8 C 05/04/20 08:13 Temperature Source Tympanic 05/04/20 08:13 Pulse 90 05/04/20 08:13 Pulse Rhythm Regular 05/03/20 22:00 Respiratory Rate 20 05/04/20 08:13 Respiratory Effort Non-Labored 05/03/20 22:00 Respiratory Depth Normal 05/03/20 22:00 Respiratory Pattern Normal 05/03/20 22:00 Blood Pressure 118/82 05/04/20 08:13 Blood Pressure Position Sitting 04/30/20 23:53 Pulse Oximetry 96 05/04/20 08:13 Oxygen Delivery Method Room Air 05/04/20 08:13 Oxygen Flow Rate 0 05/04/20 08:13 Pain Level 0 05/04/20 08:13 Comment 05/03/20 08:55 Intake & Output 05/03/20 05/04/20 05/04/20 23:59 11:59 23:59 Intake Total 240 / 240 Balance 240 / 240 Intake: Oral 240 / 240 Other: Voiding Methods Toilet Laboratory Results WBC 9.43 k/cumm (4.4-10.8) 05/01/20 02:35 RBC 4.68 m/cumm (4.00-5.20) 05/01/20 02:35 Hgb 13.4 g/dL (12.0-15.5) 05/01/20 02:35 Hct 40.0 % (36.0-46.0) 05/01/20 02:35 MCV 85.5 fL (80-95) 05/01/20 02:35 MCH 28.6 pg (27.0-33.0) 05/01/20 02:35 MCHC 33.5 g/dL (32.0-36.0) 05/01/20 02:35 RDW 12.7 % (11.7-14.6) 05/01/20 02:35 Plt Count 279 x1000/uL (130-400) 05/01/20 02:35 MPV 10.2 fL (8.0-11.0) 05/01/20 02:35 Immature Gran % 0.4 % 05/01/20 02:35 Neutrophils % 58.0 05/01/20 02:35 Lymphocytes % 32.8 05/01/20 02:35 Monocytes % 7.5 05/01/20 02:35 Eosinophils % 1.1 05/01/20 02:35 Basophils % 0.2 05/01/20 02:35 Absolute Neutrophils 5.47 k/cumm (1.2-6.7) 05/01/20 02:35 Absolute Lymphocytes 3.09 k/cumm (1.2-3.4) 05/01/20 02:35 Absolute Monocytes 0.71 k/cumm (0.11-0.7) H 05/01/20 02:35 Absolute Eosinophils 0.10 k/cumm (0.0-0.7) 05/01/20 02:35 Absolute Basophils 0.02 k/cumm (0.0-0.2) 05/01/20 02:35 Sodium 138 mmol/L (136-145) 05/01/20 02:35 Potassium 3.9 mmol/L (3.5-5.1) 05/01/20 02:35 Chloride 102 mmol/L (98-107) 05/01/20 02:35 Carbon Dioxide 26.9 mmol/L (21.0-32.0) 05/01/20 02:35 Anion Gap 9.1 mmol/L (3-11) 05/01/20 02:35 BUN 13 mg/dL (7-18) 05/01/20 02:35 Creatinine 0.84 mg/dL (0.55-1.02) 05/01/20 02:35 Estimated GFR/1.73 m2 >= 60.00 (mL/min/1.73m2) 05/01/20 02:35 Glucose 104 mg/dL (74-106) 05/01/20 02:35 Calcium 9.6 mg/dL (8.5-10.1) 05/01/20 02:35 TSH 2.26 uIU/mL (0.36-3.74) 05/01/20 02:35 Salicylates < 2.8 mg/dL (2.8-20.0) 05/01/20 02:35 Urine Opiates Screen Negative (Negative) 05/01/20 00:01 Urine Methadone Screen Negative (Negative) 05/01/20 00:01 Acetaminophen < 2 ug/mL (10-30) 05/01/20 02:35 Ur Barbiturates Screen Negative (Negative) 05/01/20 00:01 Ur Tricyclics Screen Negative (Negative) 05/01/20 00:01 Ur Amphetamines Screen Negative (Negative) 05/01/20 00:01 U Benzodiazepines Scrn Negative (Negative) 05/01/20 00:01 Urine Cocaine Screen Negative (Negative) 05/01/20 00:01 Ur THC Screen Negative (Negative) 05/01/20 00:01 Ethyl Alcohol < 3.0 mg/dL (<3) 05/01/20 02:35 COVID-19 PCR Negative (Negative) 05/01/20 02:33 Nasopharyn COVID-19 PCR Not Applicable 05/01/20 02:33 Ref Test Perform Site [facility] lab 05/01/20 02:33
--- NOTE | 2020-05-04 16:21 | CMSP_ITS ---
- If Service Date Differs Date of service: 05/04/20 Time of Service: 16:21 Care Management Safety Plan Stacey remains at [facility] on involuntary status awaiting a psychiatric placement. Stacey has been appropriate today with no reports of self-harming behaviors as of late afternoon. She spent her day pacing around the room, still clearly experiencing a lot of anxiety, but no panic attacks. She asked to speak with her on the telephone and also inquired if she could shower. She accepted that she would be allowed to shower with supervision if she was able to regulate her behavior for a period of 24-hours, and was also accepting of limits set around telephone calls with her . She continues to report suicidal ideation, to refuse to share her plan, and to eat very little. She, otherwise, has been cooperative and appropriate in her behavior and interactions with staff. Patient was evaluated via zoom by Brittany, [facility] warehouse insulation worker, twice today. There have been no bed offers, but the referral is still out for review at [facility]. [facility] continues to seek placement. Safety plan has been established to meet the needs of the patient, and consideration of the care team, to adhere to patient goals, identify restrictions based on behavioral status, address nutrition, and determine allowed personal belongings, tools for hygiene and personal care. Determine level of activity including ambulation, level of supervision, visitors, and determine privileges based on behaviors and level of engagement by pt. SAFETY PLAN: 1. Will remain on SI/HI precautions. In Paper Clothes 2. Will remain in room under direct supervision of one-on-one staff at all times provided by CPSO; CIRILO, SHEET METAL FABRICATOR bean picker machine operator. 3. May have paper cups, plates, finger foods as well as a cardboard spoon with which to eat meals. 4. Follow [facility] Management of the Admitted Behavioral Health Patient policy. 5. Comfort bath system only. If patient remains cooperative and does not experience any self-harming behaviors, such as banging her head on the wall or hitting herself, for a period of 24 hours, she will be allowed to shower with a female CPSO physically present in the shower room. 6. No personal belongings. 7. Visitors-No visitors at this time. 8. Activities: Patient is allowed to watch television in her room and other activities at nursing discretion. 9. Bathroom privileges in her room without supervision. 10. Phone: If patient remains appropriate, CM will arrange and supervise a 10- minute phone call between patient and her . If phone call is upsetting to patient, the call will be immediately disconnected. CM will speak with ahead of phone call to make him aware of the time limit and to let him know the call will be terminated if it is upsetting to patient. 11. Due to INVOLUNTARY status, if patient wishes to leave [facility], the [facility] thermometer production worker must be contacted to re-evaluate patient prior to patient exiting the building. Patient is currently involuntarily at [facility] and seeking inpatient admission when a bed becomes available. [facility] Frontline Animal Anatomy Teacher will continue seeking placement. Please contact the Freight Checker Distance Education Coordinator ([phone]) and [facility] Animal Anatomy Teacher ([phone]) for any needed changes in the Safety Plan. Safety plan has been provided to interdepartmental care team.
[2020-05-04 20:54] VITALS: BP 134/83; PULSE 105; RESP 18; TEMP 37.3; O2SAT 97
[2020-05-04] MEDS: Haloperidol 5 MG/ML VIAL 4 MG IM (21:50)
[2020-05-04] MEDS: LORazepam 2 MG/ML VIAL IM (22:12)
--- NOTE | 2020-05-04 22:16 | W.RSTF2F ---
Date of service: 05/04/20 Time of Service: 22:16 Restraint Face to Face Time of Face to Face Face to Face: Time of Face to Face: 22:01 Patient's Immediate Situation Requiring Restraints/Seclusion: Harm to Patient (hitting self with fist and banging head against the wall) Patient Response to Restraints: Remains Agitated and Restless Patient's Medical & Behavioral Condition: Patient admitted with suididal ideation. Given 4mg haloperidol IM as she did respond to this yesterday along with padded restrainst and 1:1 sitter. Her head appears atraumatic, no significant damage done. PERRL birdie. She is not talking (initially starts to open eyes upon command but then stops). She is still breathing heavy, tachcardic, and moving legs in alternating rythem against restraints. Heart regular, lungs CTAb. Will go ahead with 2mg IM lorazepam that was ordered, continue to monitor for need for restraints and to make sure she isn't oversedate.
--- NOTE | 2020-05-05 03:25 | NUR.NOTE ---
05/05- DEBRIEFING DONE AFTER RESTRAINTS DISCONTINUED ON PT. Félix MORALES RN S KAMRAN DAS, MALENA KERR AND YUSUF ANGEL RN PT HAD BEEN HITTING HER HEAD AND PILLOW WAS PLACED ON FLOOR TO KEEP PT FROM HURTING SELF. STAFF TRIED TO GET PT'S BREATHING UNDER CONTROL BY BREATING WITH HER. PT THEN STARTED HITTING HERSELF AND NEEDED TO BE PLACED IN RESTRAINTS FOR HER OWN SAFETY. PT WAS ABLE TO COME OUT OF RESTRAINTS IN 2 HOURS. SUGGESTIONS MADE TO HELP IF THERE IS A SIMILAR SITUATION MADE BY STAFF WHICH WILL BE PASSED ALONGNursing Note:
[2020-05-05 06:41] VITALS: BP 118/79; PULSE 85; RESP 18; TEMP 36.7; O2SAT 95
[2020-05-05] MEDS: Levothyroxine 50 MCG TAB PO (06:43)
[2020-05-05 09:45] VITALS: O2SAT 95
[2020-05-05] MEDS: Folic Acid 1 MG TAB 4 MG PO (09:48)
[2020-05-05] MEDS: ARIPiprazole 5 MG TAB PO (09:48)
[2020-05-05] MEDS: lamoTRIgine 100 MG TAB 150 MG PO (09:49)
[2020-05-05 09:54] VITALS: BP 111/75; PULSE 103; RESP 18; TEMP 36.7; O2SAT 92
--- NOTE | 2020-05-05 10:25 | PDOC.CMSAFE ---
- If Service Date Differs Date of service: 05/05/20 Time of Service: 10:25 Care Management Safety Plan Stacey was able to engage with mental health [facility], she is soft spoken today and admits to feeling tired. She continues to report suicidal ideation, to refuse to share her plan, and to eat very little. She did have a code stokes last evening in which CM was contacted report was that she was banging her head of the wall. She received IM Haldol. There have been no bed offers, but the referral is still out for review at [facility]. [facility] continues to seek placement. Safety plan has been established to meet the needs of the patient, and consideration of the care team, to adhere to patient goals, identify restrictions based on behavioral status, address nutrition, and determine allowed personal belongings, tools for hygiene and personal care. Determine level of activity including ambulation, level of supervision, visitors, and determine privileges based on behaviors and level of engagement by pt. SAFETY PLAN: 1. Will remain on SI/HI precautions. In Paper Clothes 2. Will remain in room under direct supervision of one-on-one staff at all times provided by CPSO; CIRILO, INTERNAL AUDIT DIRECTOR supervisor hanging and trimming. 3. May have paper cups, plates, finger foods as well as a cardboard spoon with which to eat meals. 4. Follow [facility] Management of the Admitted Behavioral Health Patient policy. 5. Comfort bath system only. If patient remains cooperative and does not experience any self-harming behaviors, such as banging her head on the wall or hitting herself, for a period of 24 hours, she will be allowed to shower with a female CPSO physically present in the shower room. 6. No personal belongings except for her glasses. 7. Visitors-No visitors at this time. 8. Activities: Patient is allowed to watch television in her room and other activities at nursing discretion. 9. Bathroom privileges in her room without supervision. 10. Phone: If patient remains appropriate, CM will arrange and supervise a 10-minute phone call between patient and her . If phone call is upsetting to patient, the call will be immediately disconnected. CM will speak with ahead of phone call to make him aware of the time limit and to let him know the call will be terminated if it is upsetting to patient. 11. Due to INVOLUNTARY status, the patient may not leave [facility] unless being transfered to a psychiatric facility. Due to involuntary status she is in the custody of Department of mental health. Patient is currently INVOLUNTARY at [facility] and seeking inpatient admission when a bed becomes available. [facility] Frontline Ply Bander will continue seeking placement. Please contact the Tree Inspector Coal Carrier ([phone]) and [facility] Ply Bander ([phone]) for any needed changes in the Safety Plan. Safety plan has been provided to interdepartmental care team via EMR.
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
--- NOTE | 2020-05-05 11:26 | W.INMHPGNOTE ---
Date of service: 05/04/20 Time of Service: 16:00 Mental Health Crisis Note Presenting Issue How did you arrive at the ED and why did you come: Sherrill arrived on 05/01 due to SI and unwillingness to contract for safety. Precipitating Factors Sherrill continues to endorse SI with plan that she will not share. There are no signs of delusions. Disposition BEHAVIOR: Sherrill is quiet and cooperative. She engages minimally in the assessment giving only minimal answers. She wishes to speak to her but was told by care manger that she needed to be able to not have any episodes and acare manger was unable to reach the either. She also is seeking a shower. EYE CONTACT: Eye contact is good MOOD: Mood remains depressed and withdrawn. AFFECT: Affect is flat with no emotional changes. APPETITE: appitite is fair. SLEEP(trouble falling/staying asleep: Sleep is good. Plan Sherrill will remain on EE status and [facility] will continue to seek placement. Signature Clinician's Name/Title: Brittany Ramon MS, [facility] Emergency Service Clinician
[2020-05-05] MEDS: LORazepam 1 MG TAB 2 MG PO (13:09)
[2020-05-05] MEDS: diphenhydrAMINE 25 MG CAP 50 MG PO (14:22)
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
[2020-05-05] MEDS: QUEtiapine 25 MG TAB PO (16:41)
--- NOTE | 2020-05-05 17:49 | PDOC.CMPRO ---
- If Service Date Differs Date of service: 05/05/20 Time of Service: 17:49 Care Management Progress Note S/O: Stacey did well over the phone with her significant other. She has been accepted at [facility] for a Friday admission. [facility] to set up transport. CM discussed medications with Stacey and to notify nursing if she starts to feel overwhelmed or have symptoms of anxiety. Stacey states the Ativan and Benadryl help her calm down and rest. She would like to take a shower this evening, CM did review with her and the RNCC if she continues to exhibit appropriate behavior she should be able to shower and change her clothing. Stacey remains suicidal and will need a female CPSO in the shower room for safety. A: Stacey is a 30 year old female involuntarily admitted awaiting placement at [facility]. P:Disposition made to [facility] for Friday, pending time per [facility], NK. She will be transferred via sheriffs detective coordinated by [facility] and [facility].
[2020-05-05 21:15] VITALS: BP 112/78; PULSE 97; RESP 17; TEMP 37.2; O2SAT 97
[2020-05-06] MEDS: Levothyroxine 50 MCG TAB PO (06:30)
[2020-05-06 08:41] VITALS: BP 105/75; PULSE 81; RESP 18; TEMP 36.2; O2SAT 96
[2020-05-06] MEDS: diphenhydrAMINE 25 MG CAP 50 MG PO (08:45)
[2020-05-06] MEDS: LORazepam 1 MG TAB 2 MG PO ×2 (08:45→12:57)
[2020-05-06] MEDS: ARIPiprazole 5 MG TAB PO (08:45)
[2020-05-06] MEDS: Folic Acid 1 MG TAB 4 MG PO (08:45)
[2020-05-06] MEDS: lamoTRIgine 100 MG TAB 150 MG PO (08:45)
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
[2020-05-06] MEDS: QUEtiapine 25 MG TAB PO (10:20)
--- NOTE | 2020-05-06 19:11 | CMDISCH_ITS ---
- If Service Date Differs Date of service: 05/06/20 Time of Service: 19:11 LACE Index Scoring Tool - Questions: Length of Stay (in days): 3 Acuity (Admit via E.D.?): Yes E.D. Visits: 2 - Answers: Total Score: 8 Risk of Readmission: Low Risk Care Management Discharge Reason for Hospitalization: Suicidal ideation Discharge Plan: Stacey was transferred to [facility] for involuntary inpatient psychiatric stabilization. Patient/Family Education Needs: per [facility] hospital providers Services Needed at Discharge: Psychiatric Facility, Transportation - MH Services (Omit if N/A) Current MH Services: Psychiatric Inp
== END 2020-05-06 13:20 | disposition short-term general hospital (02) | DRG 881 ==
LOC: ER 05-01 19:44 → MS 05-01 19:46
PROVIDERS: Student in an Organized Health Care Education/Training Program; Admitting Provider General Practice; Emergency Provider Physician Assistant; PCP Internal Medicine; Visit Provider General Practice
DX: F32.9 Major depressive disorder, single episode, unspecified (principal); R45.851 Suicidal ideations; F43.10 Post-traumatic stress disorder, unspecified; F41.9 Anxiety disorder, unspecified; G40.909 Epilepsy, unspecified, not intractable, without status epilepticus; Z11.59 Encounter for screening for other viral diseases; Z78.1 Physical restraint status
CPT/HCPCS: 36415; 80048; 80307; 81025; 94640; 99221; 99233; 99239; 99285; U0003; 80320; 80329; 84443; 85025; 99218; 99226; G0378; J1200; J1630; J2060

== ENCOUNTER 2020-05-19 17:04 | Observation (INO) | payer MEDICAID, SELFPAY ==
[2020-05-19 17:19] VITALS: BP 148/100; PULSE 99; RESP 18; TEMP 36.9; O2SAT 95
[2020-05-19 18:09] LABS: *AMPHETAMINES SCREEN URINE Negative (Negative); *BARBITURATES SCREEN URINE Negative (Negative); *BENZODIAZEPINES SCREEN URINE Negative (Negative); Cannabinoids THC Negative (Negative); Cocaine Screen,Urine Negative (Negative); METHADONE URINE SCREEN Negative (Negative); OPIATES URINE SCREEN Negative (Negative)
[2020-05-19 18:17] LABS: Tricyclic Antidepressants Negative (Negative)
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
--- NOTE | 2020-05-19 18:26 | PDOC.CMSAFED ---
- If Service Date Differs Date of service: 05/19/20 Time of Service: 18:26 Care Management Safety Plan Stacey arrives to [facility] today from the Care Bed through [facility]. She is involuntary for self harming behaviors prior to arriving at this facility. Stacey is awaiting a second cert anticipate this will not occur until the morning 05/20/2020. HAND TOOL LAPPER linen manager Vi Soto is on this weekend and will be the point person for second cert and to seek placement at a psychiatric facility. Safety plan has been established to meet the needs of the patient, and consideration of the care team, to adhere to patient goals, identify restrictions based on behavioral status, address nutrition, and determine allowed personal belongings, tools for hygiene and personal care. Determine level of activity including ambulation, level of supervision, visitors, and determine privileges based on behaviors and level of engagement by pt. SAFETY PLAN: 1. Will remain on SI/HI precautions. In Paper Clothes 2. Will remain in room under direct supervision of one-on-one staff at all times provided by CPSO; CIRILO, ENGINEERING DRAFTER laboratory immunologist. 3. May have paper cups, plates, finger foods as well as a cardboard spoon with which to eat meals. 4. Follow [facility] Management of the Admitted Behavioral Health Patient policy. 5. Comfort bath system only. If patient remains cooperative and does not experience any self-harming behaviors, such as banging her head on the wall or hitting herself, for a period of 24 hours, she will be allowed to shower with a female CPSO physically present in the shower room. 6. No personal belongings except for her glasses. 7. Visitors-No visitors at this time. 8. Activities: Patient is allowed to watch television in her room and other activities at nursing discretion. 9. Bathroom privileges in her room without supervision. 10. Phone: No phone calls at this time. Patient becomes escalated when speaking to her spouse over the phone. 11. Due to INVOLUNTARY status, the patient may not leave [facility] unless being transferred to a psychiatric facility. Due to involuntary status she is in the custody of Department of mental health. Patient is currently INVOLUNTARY at [facility] and seeking inpatient admission when a bed becomes available. [facility] Frontline Lithostripper will continue seeking placement. Please contact the Coater Slate Can Capper ([phone]) and [facility] Lithostripper ([phone]) for any needed changes in the Safety Plan. Safety plan has been provided to interdepartmental care team via EMR.
[2020-05-19 18:44] LABS: Abs Immature Grans 0.02 10^3/uL (0.0-0.06); Absolute Basophil Count 0.02 10^3/uL (0.0-0.2); Absolute Eosinophil Count 0.04 10^3/uL (0.0-0.7); Absolute Lymphocyte Count 2.49 10^3/uL (1.2-3.4); Absolute Monocyte Count 0.57 10^3/uL (0.1-0.8); Absolute Neutrophil Count 5.06 10^3/uL (1.2-6.7); Basophils % 0.2; Eosinophils % 0.5; HCT 39.8 % (36.0-46.0); HGB 12.7 g/dL (11.2-15.7); Immature Grans % 0.2; Lymphocytes % 30.4; MCH 27.7 pg (27.0-33.0); MCHC 31.9 % (32.0-36.0); MCV 86.9 fL (80-95); MPV 10.2 fL (8.0-11.0); Neutrophils % 61.7; Platelet Count 290 10^3/uL (130-400); RBC 4.58 10^6/uL (3.93-5.22); RDW 12.3 % (11.7-14.6)
[2020-05-19 19:02] LABS: ALT 90 U/L (14-59); AST 46 U/L (15-37); Albumin 4.4 g/dL (3.4-5.0); Alkaline Phosphatase 61 U/L (46-116); BUN 13 mg/dL (7-18); CREATININE 0.93 mg/dL (0.55-1.02); Calcium 9.7 mg/dL (8.5-10.1); Chloride 101 mmol/L (98-107); Glucose 94 mg/dL (74-106); Potassium 3.5 mmol/L (3.5-5.1); Sodium 138 mmol/L (136-145)
[2020-05-19 19:05] LABS: Bilirubin Small (Negative); Blood Trace-lysed (Negative); Clarity Cloudy (Clear); Glucose Negative (Negative); Ketones 40 mg/dL (Negative); Leukocyte Esterase Negative (Negative); Nitrite Negative (Negative); Specific Gravity >= 1.030 (1.005-1.025); Urobilinogen 0.2 EU/dL (Up TO 0.2); pH 5.5 (5-8)
[2020-05-19 19:35] LABS: ETHANOL BLOOD < 3.0 mg/dL (<3)
[2020-05-19 19:42] LABS: C & S Indicated? No; Crystals Many Amorphous HPF (Negative)
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
[2020-05-19] MEDS: LORazepam 0.5 MG TAB PO (20:49)
[2020-05-19 21:28] LABS: TSH 0.75 uIU/mL (0.36-3.74)
[2020-05-19 21:45] VITALS: BP 121/82; PULSE 71; RESP 17; TEMP 36.1; O2SAT 97
[2020-05-20] MEDS: Levothyroxine 50 MCG TAB PO (06:17)
[2020-05-20] MEDS: lamoTRIgine 25 MG TAB 50 MG PO (08:40)
[2020-05-20] MEDS: Folic Acid 1 MG TAB 4 MG PO (08:40)
[2020-05-20] MEDS: ARIPiprazole 5 MG TAB PO (08:41)
[2020-05-20] MEDS: lamoTRIgine 100 MG TAB PO (08:41)
[2020-05-20] MEDS: Mometasone 220 MCG 14 DOSE INHALER IH (09:24)
[2020-05-20 09:42] VITALS: BP 111/73; PULSE 86; RESP 18; TEMP 36.4; O2SAT 93
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
[2020-05-20] MEDS: LORazepam 0.5 MG TAB PO (11:02)
--- NOTE | 2020-05-20 11:13 | NUR.NOTE ---
medication list updated with discharge med list from [facility] dated 05/15/20.Nursing Note:
--- NOTE | 2020-05-20 11:53 | DSE_ITS ---
Date of service: 05/20/20 Time of Service: 11:55 DS: Diagnosis Discharge Diagnosis (1) Suicidal ideations: Status: Acute Discharge Plan Disposition Patient Disposition: OTHER Condition: Stable Discharge Details Chief Complaint: PsychEval Clinical Impression: Depression, Suicidal ideations Reason For Visit: SUICIDAL IDEATION Admit Date/Time: 05/19/20 20:29 Admit Provider: Tomas Welch Attending Provider: Tomas Welch Primary Care Provider: Winifred Sierra ED Provider: Alis Steele Home Meds and New Rx's Prescriptions: New acetaminophen [Tylenol] 325 mg Tablet 650 mg PO Q6H PRNQty: 0 RF: 0 Continued levothyroxine 50 mcg Tablet 50 mcg PO DAILY RF: 0 folic acid 1 mg Tablet 4 mg PO DAILY RF: 0 lamotrigine [Lamictal] 100 mg Tablet 150 mg PO DAILY RF: 0 aripiprazole [Abilify] 5 mg Tablet 5 mg PO DAILY RF: 0 melatonin 3 mg Tablet,Disintegrating 3 mg PO HS PRNRF: 0 albuterol sulfate 2.5 mg /3 mL (0.083 %) Solution For Nebulization 2.5 mg INHALATION Q4H PRNRF: 0 methylphenidate HCl [Concerta] 36 mg Tablet Extended Release 24hr 36 mg PO DAILY RF: 0 haloperidol 5 mg Tablet 5 mg PO .Q6H,PRN RF: 0 hydroxyzine HCl 50 mg Tablet 50 mg PO .Q4H,PRN PRNRF: 0 mometasone 220 mcg/ actuation (120) Aerosol Powdr Breath Activated 2 inh INHALATION DAILY RF: 0 prazosin 1 mg Capsule 3 mg PO HS RF: 0 Changed lorazepam 1 mg Tablet 0.5 mg PO Q6H PRN PRNQty: 0 RF: 0 Discontinued Flovent HFA 220 mcg/actuation Hfa Aerosol Inhaler 2 puff INHALATION BID RF: 0 Discharge Instructions Instructions: Depression (DC) Additional Instructions: Discharge to care bed Follow up with PCP in 1-2 weeks. Folow up with mental health provider pending recommendations after care bed stay Activity:: Activity as Tolerated Equipment/Supplies:: No Equipment Needed Diet:: As Tolerated Discharge Orders Discharge Orders: Discharge Order (Routine); Ordered 05/20/20 Ordered By: Anurag Fontanez DS: Summary Status at Discharge Functional status at discharge: independent ambulation Overall status at discharge: patient is progressing back to baseline Mental Status: mental status grossly normal Speech and Movement: speech and movement normal Mood: euthymic mood Affect: blunted Exam Psych Mental Status: mental status grossly normal Speech and Movement: speech and movement normal Mood: euthymic mood Affect: blunted DS: Data Vitals/I&O Vitals and I&O: Vital Signs Temperature 36.4 C L 05/20/20 09:42 Temperature Source Tympanic 05/20/20 09:42 Pulse 86 05/20/20 09:42 Pulse Rhythm Regular 05/20/20 08:56 Respiratory Rate 18 05/20/20 09:42 Respiratory Effort 05/20/20 08:56 Respiratory Depth Normal 05/20/20 08:56 Respiratory Pattern Normal 05/19/20 21:45 Blood Pressure 111/73 05/20/20 09:42 Blood Pressure Position Supine 05/19/20 17:19 Pulse Oximetry 93 L 05/20/20 09:42 Oxygen Delivery Method Room Air 05/20/20 09:42 Oxygen Flow Rate 0 05/20/20 09:42 Comment 05/19/20 21:45 Intake & Output 05/19/20 05/19/20 05/20/20 11:59 23:59 11:59 Intake Total 500 / 500 Balance 500 / 500 Weight 104.326 kg 100.4 kg Intake: Oral 500 / 500 Other: Urine Appearance Clear Voiding Methods Toilet Data Completed and Pending Labs on day of discharge: Labs from last 24 hours 05/19/20 05/19/20 05/19/20 20:27 18:30 18:30 WBC 8.20 RBC 4.58 Hgb 12.7 Hct 39.8 MCV 86.9 MCH 27.7 MCHC 31.9 L RDW 12.3 Plt Count 290 MPV 10.2 Immature Gran % 0.2 Neutrophils % 61.7 Lymphocytes % 30.4 Monocytes % 7.0 Eosinophils % 0.5 Basophils % 0.2 Absolute Neutrophils 5.06 Absolute Lymphocytes 2.49 Absolute Monocytes 0.57 Absolute Eosinophils 0.04 Absolute Basophils 0.02 Sodium Potassium Chloride Carbon Dioxide Anion Gap BUN Creatinine Estimated GFR/1.73 m2 Glucose Calcium Total Bilirubin AST ALT Alkaline Phosphatase Total Protein Albumin TSH 0.75 Urine Color Urine Clarity Urine pH Ur Specific [place] Urine Protein Urine Ketones Urine Blood Urine Nitrite Urine Bilirubin Urine Urobilinogen Ur Leukocyte Esterase Urine RBC Urine WBC Ur Epithelial Cells Urine Crystals Urine Bacteria Urine Mucus Ur Culture Indicated? Urine Glucose Urine Opiates Screen Urine Methadone Screen Ur Barbiturates Screen Ur Tricyclics Screen Ur Amphetamines Screen U Benzodiazepines Scrn Urine Cocaine Screen Ur THC Screen Ethyl Alcohol < 3.0 COVID-19 PCR Pending Nasopharyn COVID-19 PCR Pending Ref Test Perform Site Pending 05/19/20 05/19/20 05/19/20 18:30 17:41 17:40 WBC RBC Hgb Hct MCV MCH MCHC RDW Plt Count MPV Immature Gran % Neutrophils % Lymphocytes % Monocytes % Eosinophils % Basophils % Absolute Neutrophils Absolute Lymphocytes Absolute Monocytes Absolute Eosinophils Absolute Basophils Sodium 138 Potassium 3.5 Chloride 101 Carbon Dioxide 27.0 Anion Gap 10.0 BUN 13 Creatinine 0.93 Estimated GFR/1.73 m2 >= 60.00 Glucose 94 Calcium 9.7 Total Bilirubin 1.0 AST 46 H ALT 90 H Alkaline Phosphatase 61 Total Protein 8.0 Albumin 4.4 TSH Urine Color Yellow Urine Clarity Cloudy Urine pH 5.5 Ur Specific [place] >= 1.030 H Urine Protein Negative Urine Ketones 40 H Urine Blood Trace-lysed H Urine Nitrite Negative Urine Bilirubin Small H Urine Urobilinogen 0.2 Ur Leukocyte Esterase Negative Urine RBC Not Applicable Urine WBC Not Applicable Ur Epithelial Cells Not Applicable Urine Crystals Many amorphous Urine Bacteria Not Applicable Urine Mucus Not Applicable Ur Culture Indicated? No Urine Glucose Negative Urine Opiates Screen Negative Urine Methadone Screen Negative Ur Barbiturates Screen Negative Ur Tricyclics Screen Negative Ur Amphetamines Screen Negative U Benzodiazepines Scrn Negative Urine Cocaine Screen Negative Ur THC Screen Negative Ethyl Alcohol COVID-19 PCR Nasopharyn COVID-19 PCR Ref Test Perform Site [facility] Medical History Depression (Chronic) Suicide attempt (Acute) Social History Smoking/Tobacco Use Status: Never Alcohol Intake: never Drug use: Never Substance use type: does not use Do you feel safe at home: Yes Do you feel safe in your relationship?: Yes
--- NOTE | 2020-05-20 12:08 | DSE_ITS ---
DS: Diagnosis Discharge Diagnosis (1) Suicidal ideations: Status: Acute Discharge Plan Disposition Patient Disposition: OTHER Condition: Stable Discharge Details Chief Complaint: PsychEval Clinical Impression: Depression, Suicidal ideations Reason For Visit: SUICIDAL IDEATION Admit Date/Time: 05/19/20 20:29 Admit Provider: Tomas Welch Attending Provider: Tomas Welch Primary Care Provider: Winifred Sierra ED Provider: Alis Steele Home Meds and New Rx's Prescriptions: New acetaminophen [Tylenol] 325 mg Tablet 650 mg PO Q6H PRNQty: 0 RF: 0 Continued levothyroxine 50 mcg Tablet 50 mcg PO DAILY RF: 0 folic acid 1 mg Tablet 4 mg PO DAILY RF: 0 lamotrigine [Lamictal] 100 mg Tablet 150 mg PO DAILY RF: 0 aripiprazole [Abilify] 5 mg Tablet 5 mg PO DAILY RF: 0 melatonin 3 mg Tablet,Disintegrating 3 mg PO HS PRNRF: 0 albuterol sulfate 2.5 mg /3 mL (0.083 %) Solution For Nebulization 2.5 mg INHALATION Q4H PRNRF: 0 methylphenidate HCl [Concerta] 36 mg Tablet Extended Release 24hr 36 mg PO DAILY RF: 0 haloperidol 5 mg Tablet 5 mg PO .Q6H,PRN RF: 0 hydroxyzine HCl 50 mg Tablet 50 mg PO .Q4H,PRN PRNRF: 0 mometasone 220 mcg/ actuation (120) Aerosol Powdr Breath Activated 2 inh INHALATION DAILY RF: 0 prazosin 1 mg Capsule 3 mg PO HS RF: 0 Changed lorazepam 1 mg Tablet 0.5 mg PO Q6H PRN PRNQty: 0 RF: 0 Discontinued Flovent HFA 220 mcg/actuation Hfa Aerosol Inhaler 2 puff INHALATION BID RF: 0 Discharge Instructions Instructions: Depression (DC) Additional Instructions: Discharge to care bed Follow up with PCP in 1-2 weeks. Folow up with mental health provider pending recommendations after care bed stay Stand Alone Forms: Nursing Discharge Form Referrals: Winifred Sierra [Primary Care Provider] - (Please call the office on Friday morning to schedule an appointment to be seen within 2 weeks) Activity:: Activity as Tolerated Equipment/Supplies:: No Equipment Needed Diet:: As Tolerated Discharge Orders Discharge Orders: Discharge Order (Routine); Ordered 05/20/20 Ordered By: Anurag Fontanez Discharge Data Discharge Date/Time-TO BE ENTERED AT DEPARTURE: 05/20/20 13:20 DS: Summary Status at Discharge Functional status at discharge: independent ambulation Overall status at discharge: patient is back to baseline Mental Status: other Speech and Movement: speech and movement normal and other Mood: other Affect: blunted Exam Psych Mental Status: other Speech and Movement: speech and movement normal and other Mood: other Affect: blunted DS: Data Vitals/I&O Vitals and I&O: Vital Signs Temperature 36.4 C L 05/20/20 09:42 Temperature Source Tympanic 05/20/20 09:42 Pulse 86 05/20/20 09:42 Pulse Rhythm Regular 05/20/20 08:56 Respiratory Rate 18 05/20/20 09:42 Respiratory Effort 05/20/20 08:56 Respiratory Depth Normal 05/20/20 08:56 Respiratory Pattern Normal 05/19/20 21:45 Blood Pressure 111/73 05/20/20 09:42 Blood Pressure Position Supine 05/19/20 17:19 Pulse Oximetry 93 L 05/20/20 09:42 Oxygen Delivery Method Room Air 05/20/20 09:42 Oxygen Flow Rate 0 05/20/20 09:42 Comment 05/19/20 21:45 Intake & Output 05/19/20 05/20/20 05/20/20 23:59 11:59 23:59 Intake Total 500 / 500 Balance 500 / 500 Weight 104.326 kg 100.4 kg Intake: Oral 500 / 500 Other: Urine Appearance Clear Voiding Methods Toilet Data Completed and Pending Labs on day of discharge: Labs from last 24 hours 05/19/20 05/19/20 05/19/20 20:27 18:30 18:30 WBC 8.20 RBC 4.58 Hgb 12.7 Hct 39.8 MCV 86.9 MCH 27.7 MCHC 31.9 L RDW 12.3 Plt Count 290 MPV 10.2 Immature Gran % 0.2 Neutrophils % 61.7 Lymphocytes % 30.4 Monocytes % 7.0 Eosinophils % 0.5 Basophils % 0.2 Absolute Neutrophils 5.06 Absolute Lymphocytes 2.49 Absolute Monocytes 0.57 Absolute Eosinophils 0.04 Absolute Basophils 0.02 Sodium Potassium Chloride Carbon Dioxide Anion Gap BUN Creatinine Estimated GFR/1.73 m2 Glucose Calcium Total Bilirubin AST ALT Alkaline Phosphatase Total Protein Albumin TSH 0.75 Urine Color Urine Clarity Urine pH Ur Specific [place] Urine Protein Urine Ketones Urine Blood Urine Nitrite Urine Bilirubin Urine Urobilinogen Ur Leukocyte Esterase Urine RBC Urine WBC Ur Epithelial Cells Urine Crystals Urine Bacteria Urine Mucus Ur Culture Indicated? Urine Glucose Urine Opiates Screen Urine Methadone Screen Ur Barbiturates Screen Ur Tricyclics Screen Ur Amphetamines Screen U Benzodiazepines Scrn Urine Cocaine Screen Ur THC Screen Ethyl Alcohol < 3.0 COVID-19 PCR Pending Nasopharyn COVID-19 PCR Pending Ref Test Perform Site Pending 05/19/20 05/19/20 05/19/20 18:30 17:41 17:40 WBC RBC Hgb Hct MCV MCH MCHC RDW Plt Count MPV Immature Gran % Neutrophils % Lymphocytes % Monocytes % Eosinophils % Basophils % Absolute Neutrophils Absolute Lymphocytes Absolute Monocytes Absolute Eosinophils Absolute Basophils Sodium 138 Potassium 3.5 Chloride 101 Carbon Dioxide 27.0 Anion Gap 10.0 BUN 13 Creatinine 0.93 Estimated GFR/1.73 m2 >= 60.00 Glucose 94 Calcium 9.7 Total Bilirubin 1.0 AST 46 H ALT 90 H Alkaline Phosphatase 61 Total Protein 8.0 Albumin 4.4 TSH Urine Color Yellow Urine Clarity Cloudy Urine pH 5.5 Ur Specific [place] >= 1.030 H Urine Protein Negative Urine Ketones 40 H Urine Blood Trace-lysed H Urine Nitrite Negative Urine Bilirubin Small H Urine Urobilinogen 0.2 Ur Leukocyte Esterase Negative Urine RBC Not Applicable Urine WBC Not Applicable Ur Epithelial Cells Not Applicable Urine Crystals Many amorphous Urine Bacteria Not Applicable Urine Mucus Not Applicable Ur Culture Indicated? No Urine Glucose Negative Urine Opiates Screen Negative Urine Methadone Screen Negative Ur Barbiturates Screen Negative Ur Tricyclics Screen Negative Ur Amphetamines Screen Negative U Benzodiazepines Scrn Negative Urine Cocaine Screen Negative Ur THC Screen Negative Ethyl Alcohol COVID-19 PCR Nasopharyn COVID-19 PCR Ref Test Perform Site [facility] Medical History Depression (Chronic) Suicide attempt (Acute) Social History Smoking/Tobacco Use Status: Never Alcohol Intake: never Drug use: Never Substance use type: does not use Do you feel safe at home: Yes Do you feel safe in your relationship?: Yes
--- NOTE | 2020-05-20 12:19 | PDOC.CMDIS ---
- If Service Date Differs Date of service: 05/20/20 Time of Service: 12:19 LACE Index Scoring Tool - Questions: Length of Stay (in days): 1 Acuity (Admit via E.D.?): Yes E.D. Visits: 2 - Answers: Total Score: 6 Risk of Readmission: Low Risk Care Management Discharge Reason for Hospitalization: Involuntary for psychiatric admission Discharge Plan: Stacey was appropiate in her interaction with the second certification, the second cert was denied. Stacey is voluntary to be transfered to a psychiatric facility. CM faxed referrals to , [facility], [facility], and [facility] She is able to contract for safety and wait for acceptence at the [facility]. COVID swab was done and completed CM will fax the results as soon as they return. CM met with MYA Simons and Vi Soto and they have determined this is a safe transition plan. will transport to facility. CM updated provider, building supervisor, RNCC and primary nurse. CM also requested medications be sent with Stacey from [facility] that were brought in at time of admission. Patient/Family Education Needs: Discharge education, transition to the care bed and placement status. - MH Services (Omit if N/A) Current MH Services: Care Bed Referred to Internal [facility] (ED embedded) case specialist?: Yes
[2020-05-20 13:02] LABS: COVID-19 RT-PCR UVMMC Result Negative (Negative)
--- NOTE | 2020-05-20 17:31 | NUR.NOTE ---
per request of Metal Handler, Jackie Miranda results faxed to [facility]. Nursing Note:
--- NOTE | 2020-05-22 11:11 | CMACTNOTE_ITS ---
- If Service Date Differs Date of service: 05/22/20 Time of Service: 11:11 Care Management Activity Note At the request of Alexus Capellan [facility] Care Bed corncob pipe supervisor, CM faxes results of Covid test to the Care Bed ([phone]).
--- NOTE | 2020-05-22 11:11 | PDOC.CMACT ---
- If Service Date Differs Date of service: 05/22/20 Time of Service: 11:11 Care Management Activity Note At the request of Alexus Capellan [facility] Care Bed intelligence group supervisor, CM faxes results of Covid test to the Care Bed ([phone]).
== END 2020-05-20 13:20 | disposition other institution (70) ==
LOC: ER 21:21 → MS 21:47
PROVIDERS: Admitting Provider Family Medicine; Emergency Provider Physician Assistant; PCP Internal Medicine; Visit Provider Family Medicine
DX: R45.851 Suicidal ideations (principal); F32.9 Major depressive disorder, single episode, unspecified; Z79.899 Other long term (current) drug therapy; Z91.5 Personal history of self-harm; F43.10 Post-traumatic stress disorder, unspecified; Z62.810 Personal history of physical and sexual abuse in childhood
CPT/HCPCS: 36415; 80053; 80307; 81025; 94640; 99217; 99219; 99226; 99239; 99285; U0003; 80320; 81003; 81015; 84443; 85025; 99283; G0378

== ENCOUNTER 2020-08-05 23:32 | Emergency (ER) | payer MEDICAID, SELFPAY ==
[2020-08-05 23:44] VITALS: BP 138/82; PULSE 126; RESP 20; TEMP 36.8; O2SAT 97
--- NOTE | 2020-08-05 23:54 | ED.GENADUL_ITS ---
Discharge Plan Disposition Patient Disposition: HOME Condition: Good Discharge Details Clinical Impression: Adverse reaction to cannabis Primary Care Provider: Winifred Sierra ED Provider: Serjio Cuadra Meds and New Rx's Prescriptions: Continued levothyroxine 50 mcg Tablet 50 mcg PO DAILY RF: 0 folic acid 1 mg Tablet 4 mg PO DAILY RF: 0 lamotrigine [Lamictal] 100 mg Tablet 200 mg PO DAILY RF: 0 aripiprazole [Abilify] 5 mg Tablet 15 mg PO DAILY RF: 0 fluoxetine [Prozac] 40 mg Capsule 40 mg PO DAILY RF: 0 mirtazapine [Remeron] 15 mg Tablet 15 mg PO HS RF: 0 clonidine HCl 0.1 mg Tablet 0.1 mg PO BID RF: 0 albuterol sulfate 2.5 mg /3 mL (0.083 %) Solution For Nebulization 2.5 mg INHALATION Q4H PRNRF: 0 methylphenidate HCl [Concerta] 36 mg Tablet Extended Release 24hr 36 mg PO DAILY RF: 0 mometasone 220 mcg/ actuation (120) Aerosol Powdr Breath Activated 2 inh INHALATION DAILY RF: 0 acetaminophen [Tylenol] 325 mg Tablet 650 mg PO Q6H PRNQty: 0 RF: 0 Discharge Instructions Additional Instructions: Avoid drugs and alcohol for the rest of the weekend. Avoid marijuana in the future given your adverse reaction to night. Continue medications as before. Follow-up with primary as needed. Return to ED for problems. Referrals: Winifred Sierra [Primary Care Provider] - Medical Decision Making This is not seizure activity. Patient does have an adverse reaction to the marijuana with associated anxiety and paranoia. Will send labs and treat with Ativan and observe until feeling better. Patient's labs look fine. Alcohol is 0. Drug screen positive for marijuana only. She is feeling better. She is getting a sober ride home. Marijuana in the future given her adverse reaction to it tonight. Lab Data Lab results reviewed: Yes I reviewed the patient's lab results. HPI General Mode of arrival: EMS . Date/Time Provider Initiated Documentation: 08/05/20 23:50 . Information obtained by: patient, EMS and RN notes reviewed . HPI Narrative: Patient arrives by EMS with question seizure. Patient does report a history of seizures. Tonight her was visiting with friends. They were drinking alcohol and smoking marijuana. Patient all of a sudden became very anxious, paranoid, shaking all over. However, she is able to recall all of the event. With previous seizures she has no recollection of those events. Patient still feeling anxious but better than before. Admits that she is not much of a drinker or user of marijuana. She denies fever, cough, shortness of breath, chest pain, vomiting, diarrhea, other symptoms/illness. Related Data Home Medications Medication Instructions Recorded Confirmed aripiprazole [Abilify] 15 mg PO DAILY 05/26/19 08/05/20 folic acid 4 mg PO DAILY 05/26/19 08/05/20 lamotrigine [Lamictal] 200 mg PO DAILY 05/26/19 08/05/20 levothyroxine 50 mcg PO DAILY 05/26/19 08/05/20 albuterol sulfate 2.5 mg INHALATION Q4H PRN 05/01/20 08/05/20 acetaminophen [Tylenol] 650 mg PO Q6H PRN #0 tab 05/20/20 08/05/20 methylphenidate HCl [Concerta] 36 mg PO DAILY 05/20/20 08/05/20 mometasone 2 inh INHALATION DAILY 05/20/20 08/05/20 fluoxetine [Prozac] 40 mg PO DAILY 08/05/20 08/05/20 clonidine HCl 0.1 mg PO BID 08/06/20 08/06/20 mirtazapine [Remeron] 15 mg PO HS 08/06/20 08/06/20 Previous Rx's Medication Instructions Recorded acetaminophen [Tylenol] 650 mg PO Q6H PRN #0 tab 05/20/20 Allergies Allergy/AdvReac Type Severity Reaction Status Date / Time latex Allergy Mild Skin Rash Unverified 08/06/20 00:13 Latex, Natural Rubber Allergy Mild Skin Rash Unverified 08/06/20 00:13 erythromycin base Allergy Unverified 08/05/20 23:53 sulfamethoxazole Allergy Unverified 08/05/20 23:53 [From Bactrim] trimethoprim [From Bactrim] Allergy Unverified 08/05/20 23:53 cigarette smoke AdvReac Mild head Unverified 08/05/20 23:53 congestion General Stated Complaint: Seizure SHAI: 2 Review of Systems Narrative: As documented in HPI otherwise negative as below. Const: no fever, chills, weakness Resp: no cough, SOB, pleuritic pain CV: no CP, diaphoresis, edema, syncope GI: no abdominal pain, nausea, vomiting, diarrhea Neuro: no headache, numbness, focal weakness, confusion PFSH Medical History Depression Hypothyroid Suicide attempt Social History Smoking/Tobacco Use Status: Never Drug use: Socially Substance use type: marijuana Do you feel safe at home: Yes Do you feel safe in your relationship?: Yes Additional Social history: States now she had Pot a couple days ago but not much experience with it.States a long time ago on the ETOH. Exam Narrative Exam Narrative: Vitals: Afebrile. Tachycardic but anxious. Other vitals and room air pulse ox normal. Const: Obese female in NAD but anxious. HEENT: NC/AT. Normal facial exam. Eyes: Normal conjunctiva and sclera. Neck: Supple. Trachea midline. Lungs: Normal respiratory effort. Lungs are clear. Cor: RRR without murmur/gallop. Good radial pulses. GI: Soft. NT/ND. No guarding or rebound. Back: No CVAT Neuro: A+O x 3. Normal speech, mentation, gait. Cranial nerves II - XII grossly intact. No gross motor or sensory deficit. Ext: No C/C/E. Skin: Warm and dry without rash. Course Vital Signs Vital signs: Vital Signs Temperature 98.2 F 08/05/20 23:44 Pulse 126 H 08/05/20 23:44 Respiratory Rate 20 08/05/20 23:44 Blood Pressure 138/82 08/05/20 23:44 Pulse Oximetry 97 08/05/20 23:44 Temperature 98.2 F 08/05/20 23:44 Temperature Source Temporal Artery Scan 08/05/20 23:44 Pulse 126 H 08/05/20 23:44 Respiratory Rate 20 08/05/20 23:44 Respiratory Effort Non-Labored 08/05/20 23:49 Blood Pressure 138/82 08/05/20 23:44 Blood Pressure Position Sitting 08/05/20 23:44 Pulse Oximetry 97 08/05/20 23:44 Oxygen Delivery Method Room Air 08/05/20 23:44 Oxygen Flow Rate 0 08/05/20 23:44 Pain Level 0 08/05/20 23:44
[2020-08-06 00:28] LABS: Abs Immature Grans 0.05 10^3/uL (0.0-0.06); Absolute Basophil Count 0.01 10^3/uL (0.0-0.2); Absolute Eosinophil Count 0.07 10^3/uL (0.0-0.7); Absolute Lymphocyte Count 2.13 10^3/uL (1.2-3.4); Absolute Monocyte Count 0.44 10^3/uL (0.1-0.8); Absolute Neutrophil Count 5.43 10^3/uL (1.2-6.7); Basophils % 0.1; Eosinophils % 0.9; HCT 40.6 % (36.0-46.0); HGB 12.8 g/dL (11.2-15.7); Immature Grans % 0.6; Lymphocytes % 26.2; MCHC 31.5 % (32.0-36.0); MCV 88.8 fL (80-95); MPV 10.1 fL (8.0-11.0); Monocytes % 5.4; Neutrophils % 66.8; Nucleated RBC 0 %; Platelet Count 261 10^3/uL (130-400); RBC 4.57 10^6/uL (3.93-5.22); RDW 12.5 % (11.7-14.6); RDW-SD 40.8 fL; WBC 8.13 10^3/uL (4.4-10.8)
[2020-08-06 00:38] LABS: Bilirubin Negative (Negative); Blood Moderate (Negative); Clarity Clear (Clear); Glucose Negative (Negative); Ketones Negative (Negative); Leukocyte Esterase Negative (Negative); Nitrite Negative (Negative); Specific Gravity >= 1.030 (1.005-1.025); Urobilinogen 0.2 EU/dL (Up TO 0.2); pH 5.5 (5-8)
[2020-08-06 00:43] LABS: ALT 47 U/L (14-59); AST 40 U/L (15-37); Albumin 4.1 g/dL (3.4-5.0); Alkaline Phosphatase 89 U/L (46-116); Anion Gap 7.8 mmol/L (3-11); BUN 16 mg/dL (7-18); Bilirubin, Total 0.3 mg/dL (0.2-1.0); CO2 26.2 mmol/L (21.0-32.0); CREATININE 0.88 mg/dL (0.55-1.02); Calcium 9.6 mg/dL (8.5-10.1); Chloride 104 mmol/L (98-107); Glucose 137 mg/dL (74-106); Magnesium 1.7 mg/dL (1.8-2.4); Potassium 3.7 mmol/L (3.5-5.1); Sodium 138 mmol/L (136-145); Total Protein 7.7 g/dL (6.4-8.2)
[2020-08-06 00:47] LABS: *AMPHETAMINES SCREEN URINE Negative (Negative); *BARBITURATES SCREEN URINE Negative (Negative); *BENZODIAZEPINES SCREEN URINE Negative (Negative); Cannabinoids THC POSITIVE (Negative); Cocaine Screen,Urine Negative (Negative); METHADONE URINE SCREEN Negative (Negative); OPIATES URINE SCREEN Negative (Negative)
[2020-08-06 00:55] LABS: Tricyclic Antidepressants Negative (Negative)
[2020-08-06] MEDS: LORazepam 2 MG/ML VIAL 0.5 MG IVP (00:59)
[2020-08-06 01:02] VITALS: BP 143/79; PULSE 107; RESP 18; O2SAT 100
[2020-08-06 01:03] LABS: ETHANOL BLOOD < 3.0 mg/dL (<3)
[2020-08-06 01:29] VITALS: BP 135/80; PULSE 101; RESP 18; O2SAT 99
[2020-08-06 01:45] LABS: Epithelial Cells Few HPF (Negative); RBC 0-2 HPF (0-2)
[2020-08-06 01:46] LABS: Bacteria Few HPF (Negative); C & S Indicated? Yes; Casts Negative LPF (Negative); Crystals Negative HPF (Negative); Mucus Trace (Negative)
--- NOTE | 2020-08-11 20:06 | W.ED.FU ---
Urine culture noted Klebsiella pneumonia greater than 100,000 colonies. Patient called at home and originally left voicemail message. Patient returned phone call to ED and stated that she had suprapubic pressure but no urinary symptoms or fever or vomiting. She has no known allergy to Keflex or penicillin. A prescription for Keflex 500 mg 1 tab p.o. twice daily x5 days, dispense 10 was called into [facility] pharmacy in [facility].
== END 2020-08-06 01:50 | disposition home or self-care (01) ==
PROVIDERS: Emergency Provider Emergency Medicine; PCP Internal Medicine
DX: F23 Brief psychotic disorder (principal); F41.8 Other specified anxiety disorders; G25.1 Drug-induced tremor; T40.7X5A Adverse effect of cannabis (derivatives), initial encounter; G40.909 Epilepsy, unspecified, not intractable, without status epilepticus
CPT/HCPCS: 36415; 80053; 80307; 81025; 87077; 96374; 99284; 80320; 81003; 81015; 83735; 85025; 87086; 87186; J2060

== ENCOUNTER 2021-06-22 16:16 | Emergency (ER) | payer MEDICAID, SELFPAY ==
--- NOTE | 2021-06-22 16:15 | RT.EKG_ITS ---
APPROVED REPORT Exam: Resting ECG Reason for Exam: tachycardia, seizure Patient Location: E HR:107 bpm ECG Measurements Heart Rate 107 AXIS CO 134 P 35 QRSd 82 QRS 19 QT 330 T 23 QTc 441 Conclusion Sinus tachycardia...rate> 99
[2021-06-22 16:19] VITALS: BP 138/81; PULSE 111; RESP 21; TEMP 37.3; O2SAT 97
[2021-06-22 16:25] VITALS: BP 138/81; PULSE 108; PULSE 83; RESP 39; O2SAT 95
[2021-06-22 16:26] VITALS: PULSE 110; RESP 12; O2SAT 95
[2021-06-22 16:30] VITALS: PULSE 108; RESP 14; O2SAT 95
[2021-06-22 16:34] VITALS: BP 137/78; PULSE 102; PULSE 109; RESP 17; O2SAT 95
[2021-06-22 16:40] VITALS: PULSE 107; RESP 28; O2SAT 95
[2021-06-22 16:43] LABS: Source Nasal/Nares
[2021-06-22 17:00] LABS: Abs Immature Grans 0.07 10^3/uL (0.0-0.06); Absolute Basophil Count 0.03 10^3/uL (0.0-0.2); Absolute Eosinophil Count 0.04 10^3/uL (0.0-0.7); Absolute Lymphocyte Count 2.33 10^3/uL (1.2-3.4); Absolute Monocyte Count 0.48 10^3/uL (0.1-0.8); Absolute Neutrophil Count 6.26 10^3/uL (1.2-6.7); Basophils % 0.3; Eosinophils % 0.4; HCT 39.7 % (36.0-46.0); HGB 12.7 g/dL (11.2-15.7); Immature Grans % 0.8; Lymphocytes % 25.3; MCH 27.9 pg (27.0-33.0); MCV 87.3 fL (80-95); MPV 9.8 fL (8.0-11.0); Monocytes % 5.2; Nucleated RBC 0 %; Platelet Count 241 10^3/uL (130-400); RBC 4.55 10^6/uL (3.93-5.22); RDW 12.2 % (11.7-14.6); RDW-SD 39.3 fL; WBC 9.21 10^3/uL (4.4-10.8)
--- NOTE | 2021-06-22 17:04 | ED.GENADUL_ITS ---
Discharge Plan Disposition Patient Disposition: OTHER Condition: Stable Discharge Details Clinical Impression: Seizure-like activity, Depression Primary Care Provider: Winifred Sierra ED Provider: Daniel Caro Home Meds and New Rx's Prescriptions: Continued levothyroxine 50 mcg Tablet 50 mcg PO DAILY RF: 0 folic acid 1 mg Tablet 4 mg PO DAILY RF: 0 lamotrigine [Lamictal] 100 mg Tablet 200 mg PO DAILY RF: 0 aripiprazole [Abilify] 5 mg Tablet 15 mg PO DAILY RF: 0 fluoxetine [Prozac] 40 mg Capsule 40 mg PO DAILY RF: 0 mirtazapine [Remeron] 15 mg Tablet 15 mg PO HS RF: 0 clonidine HCl 0.1 mg Tablet 0.1 mg PO BID RF: 0 albuterol sulfate 2.5 mg /3 mL (0.083 %) Solution For Nebulization 2.5 mg INHALATION Q4H PRNRF: 0 methylphenidate HCl [Concerta] 36 mg Tablet Extended Release 24hr 36 mg PO DAILY RF: 0 mometasone 220 mcg/ actuation (120) Aerosol Powdr Breath Activated 2 inh INHALATION DAILY RF: 0 acetaminophen [Tylenol] 325 mg Tablet 650 mg PO Q6H PRNQty: 0 RF: 0 Discharge Instructions Instructions: Depression (ED), Recurrent Seizures in Adults (ED) Additional Instructions: Please follow-up with neurology. Call to arrange timely follow-up. Please contact your primary care physician to arrange follow-up. Return to the ER for any worsening or new concerning symptoms. Referrals: Winifred Sierra [Primary Care Provider] - Sari Torres MD [ [facility] STAFF PHYSICIAN] - Discharge Data Discharge Date/Time-TO BE ENTERED AT DEPARTURE: 06/22/21 18:10 Medical Decision Making 31-year-old female with history of seizure disorder, depression, here after having witnessed convulsive seizure-like activity with loss of consciousness. Consider seizure, likely related to poor compliance with antiepileptic medication. Patient is depressed and has been feeling suicidal. No active suicidality and she feels safe here currently. Screening labs were reviewed: No leukocytosis, normal electrolytes. Patient was observed in the emerge department for extended period of time and had no recurrent symptoms. I called and spoke with provider at the care bed and they are willing to accept the patient back and will provide medications as prescribed. Patient requesting discharge to care bed. Usual customary discharge instructions reviewed the patient. She was encouraged to return immediately for any worsening or new concerning symptoms. HPI General Mode of arrival: EMS . Date/Time Provider Initiated Documentation: 06/22/21 16:28 . Limitations to Documentation: no limitations . Information obtained by: patient and EMS . HPI Narrative: 31-year-old female with history of depression, seizure-like activity on Lamictal, sent from the care bed where she had a witnessed convulsive episode. Patient notes she thinks she had a seizure. Patient states she was feeling well and had the sudden episode. Convulsions lasted approximately 2 minutes and resolved. She denies associated fever. No numbness or tingling. No focal weakness. Patient does state that she has been intermittently noncompliant with her antiepileptics and states that over the past week she probably took her Lamictal 3 out of 7 days. Patient last had seizure activity months to years ago. Patient is depressed. She has had suicidal thoughts. Suicidality is not active at this time. Patient notes that she feels safe here in emergency department. She denies intentional overdose or drug use. Patient has been in the care bed since yesterday and was medically screened and cleared by [facility] yesterday. Related Data Home Medications Medication Instructions Recorded Confirmed aripiprazole [Abilify] 15 mg PO DAILY 05/26/19 06/22/21 folic acid 4 mg PO DAILY 05/26/19 06/22/21 lamotrigine [Lamictal] 200 mg PO DAILY 05/26/19 06/22/21 levothyroxine 50 mcg PO DAILY 05/26/19 06/22/21 albuterol sulfate 2.5 mg INHALATION Q4H PRN 05/01/20 06/22/21 acetaminophen [Tylenol] 650 mg PO Q6H PRN #0 tab 05/20/20 06/22/21 methylphenidate HCl [Concerta] 36 mg PO DAILY 05/20/20 06/22/21 mometasone 2 inh INHALATION DAILY 05/20/20 06/22/21 fluoxetine [Prozac] 40 mg PO DAILY 08/05/20 06/22/21 clonidine HCl 0.1 mg PO BID 08/06/20 06/22/21 mirtazapine [Remeron] 15 mg PO HS 08/06/20 06/22/21 Previous Rx's Medication Instructions Recorded acetaminophen [Tylenol] 650 mg PO Q6H PRN #0 tab 05/20/20 Allergies Allergy/AdvReac Type Severity Reaction Status Date / Time latex Allergy Mild Skin Rash Unverified 06/22/21 16:27 Latex, Natural Rubber Allergy Mild Skin Rash Unverified 06/22/21 16:27 erythromycin base Allergy Unverified 06/22/21 16:27 sulfamethoxazole Allergy Unverified 06/22/21 16:27 [From Bactrim] trimethoprim [From Bactrim] Allergy Unverified 06/22/21 16:27 cigarette smoke AdvReac Mild head Unverified 06/22/21 16:27 congestion General Stated Complaint: Seizure SHAI: 2 Review of Systems All systems reviewed & are unremarkable except as noted in HPI and below Constitutional Constitutional: Denies chills, Reports fatigue, Denies fever(s) and Reports headache(s) (Mild) ENT Ears, Nose, Mouth, and Throat: Denies vertigo and Reports headache(s) (Mild) Neurologic Neurologic: Reports as per HPI, Denies abnormal speech, Denies vertigo, Reports headache(s) (Mild) and Denies sensory deficit Endocrine Endocrine: Reports fatigue PFSH Medical History Depression Hypothyroid Suicide attempt Social History Smoking/Tobacco Use Status: Never Smoking risk assessment performed?: Yes Drug use: Socially Substance use type: marijuana Do you feel safe at home: Yes Do you feel safe in your relationship?: Yes Exam Const General: cooperative and no acute distress [facility] Head: normocephalic and atraumatic Mouth: moist mucous membranes Eyes Conjunctivae: normal conjunctivae Sclera: normal sclerae EOM: EOM intact bilaterally Neck Neck: trachea midline and supple Resp Auscultation: clear to auscultation bilaterally, no rales, no rhonchi and no wheezes Cardio Jugular venous pressure: no JVD Rate: regular rate and not tachycardic Rhythm: regular rhythm GI Palpation: soft, not firm, no guarding, no masses, not rigid and nontender Skin General skin exam: no rashes or lesions noted Neuro General: patient alert, patient awake, patient oriented x3 and tone normal Cranial Nerves: PERRL, accommodation normal, EOM intact bilaterally, no nystagmus, facial strength normal, tongue midline, hearing normal, able to rotate head bilaterally and able to elevate shoulders bilaterally Cognition: normal cognition Speech: speech normal Motor: strength 5/5 throughout Sensory Exam: no sensory deficits noted Extrem General: no edema Psych Appearance: grossly normal Mental Status: mental status grossly normal Speech and Movement: speech and movement normal Mood: other (depressed) Course Vital Signs Vital signs: Vital Signs Temperature 37.3 C 06/22/21 16:19 Pulse 111 H 06/22/21 16:19 Respiratory Rate 21 06/22/21 16:19 Blood Pressure 138/81 06/22/21 16:19 Pulse Oximetry 97 06/22/21 16:19 Temperature 37.3 C 06/22/21 16:19 Temperature Source Oral 06/22/21 16:19 Pulse 102 H 06/22/21 16:34 Pulse 107 H 06/22/21 16:40 Respiratory Rate 28 H 06/22/21 16:40 Respiratory Effort Non-Labored 06/22/21 16:31 Respiratory Depth Normal 06/22/21 16:31 Respiratory Pattern Normal 06/22/21 16:31 Blood Pressure 137/78 06/22/21 16:34 Blood Pressure Mean 89 06/22/21 16:34 Blood Pressure Position Supine 06/22/21 16:19 Pulse Oximetry 95 06/22/21 16:40 Oxygen Delivery Method Room Air 06/22/21 16:19 Oxygen Flow Rate 0 06/22/21 16:19 Pain Level 5 06/22/21 16:19 Lab/Test Results Lab/Test Results: Laboratory Tests Range/Units 06/22/21 06/22/21 16:30 16:30 WBC (4.4-10.8) 10^3/uL 9.21 RBC (3.93-5.22) 10^6/uL 4.55 Hgb (11.2-15.7) g/dL 12.7 Hct (36.0-46.0) % 39.7 MCV (80-95) fL 87.3 MCH (27.0-33.0) pg 27.9 MCHC (32.0-36.0) % 32.0 RDW (11.7-14.6) % 12.2 Plt Count (130-400) 10^3/uL 241 MPV (8.0-11.0) fL 9.8 Immature Gran % 0.8 Neutrophils % 68.0 Lymphocytes % 25.3 Monocytes % 5.2 Eosinophils % 0.4 Basophils % 0.3 Nucleated RBC % % 0 Absolute Neutrophils (1.2-6.7) 10^3/uL 6.26 Absolute Lymphocytes (1.2-3.4) 10^3/uL 2.33 Absolute Monocytes (0.1-0.8) 10^3/uL 0.48 Absolute Eosinophils (0.0-0.7) 10^3/uL 0.04 Absolute Basophils (0.0-0.2) 10^3/uL 0.03 COVID-19 Source Nasal/Nares
[2021-06-22 17:17] LABS: Bilirubin Negative (Negative); Blood Negative (Negative); Clarity Sl Cloudy (Clear); Glucose Negative (Negative); Ketones 15 mg/dL (Negative); Leukocyte Esterase Negative (Negative); Nitrite Negative (Negative); Specific Gravity 1.015 (1.005-1.025); Urobilinogen 0.2 EU/dL (Up TO 0.2); pH 5.5 (5-8)
[2021-06-22 17:21] LABS: ALT 103 U/L (14-59); AST 68 U/L (15-37); Albumin 4.1 g/dL (3.4-5.0); Alkaline Phosphatase 53 U/L (46-116); Anion Gap 12.8 mmol/L (3-11); BUN 14 mg/dL (7-18); Bilirubin, Total 0.6 mg/dL (0.2-1.0); CO2 25.2 mmol/L (21.0-32.0); Calcium 9.5 mg/dL (8.5-10.1); Chloride 99 mmol/L (98-107); Glucose 114 mg/dL (74-106); Potassium 3.6 mmol/L (3.5-5.1); Sodium 137 mmol/L (136-145); TSH (W/Ref FT4) 1.12 uIU/mL (0.36-3.74); Total Protein 7.6 g/dL (6.4-8.2)
[2021-06-22 17:36] LABS: *AMPHETAMINES SCREEN URINE Negative (Negative); *BARBITURATES SCREEN URINE Negative (Negative); *BENZODIAZEPINES SCREEN URINE Negative (Negative); Cannabinoids THC Negative (Negative); Cocaine Screen,Urine Negative (Negative); METHADONE URINE SCREEN Negative (Negative); OPIATES URINE SCREEN Negative (Negative)
[2021-06-22 17:41] LABS: Tricyclic Antidepressants Negative (Negative)
[2021-06-22 17:56] LABS: COVID-19 PCR Negative (Negative)
--- NOTE | 2021-06-22 19:07 | NUR.NOTE ---
Nursing Note: Referral faxed to neurology for consult - libl 06/22/21
== END 2021-06-22 18:10 | disposition other institution (70) ==
PROVIDERS: Emergency Provider Student in an Organized Health Care Education/Training Program; PCP Internal Medicine
DX: R56.9 Unspecified convulsions (principal); F32.9 Major depressive disorder, single episode, unspecified; Z91.14 Patient's other noncompliance with medication regimen
CPT/HCPCS: 36415; 36416; 80053; 80307; 81025; 82962; 87635; 93005; 99283; 81003; 84443; 85025; 93010

== ENCOUNTER 2021-11-08 15:41 | Outpatient (REF) | payer MEDICAID, SELFPAY ==
[2021-11-10 13:25] LABS: COVID-19 RT-PCR UVMMC Result Negative (Negative)
== END 2021-11-08 15:42 | disposition home or self-care (01) ==
LOC: NCHCN 15:41
PROVIDERS: PCP Internal Medicine; Visit Provider Physician Assistant Medical
DX: Z20.822 Contact with and (suspected) exposure to COVID-19 (principal); G43.909 Migraine, unspecified, not intractable, without status migrainosus
CPT/HCPCS: U0003

== ENCOUNTER 2021-11-12 02:03 | Outpatient (CLI) | payer MEDICAID, SELFPAY ==
--- NOTE | 2021-11-12 | DI.MRI_ITS ---
Exam(s) MR BRAIN WO/W EXAM: MR BRAIN WO/W CLINICAL HISTORY: MIGRAINE G43.909 W/ CLOUDY VISION, CONCERN FOR TUMOR TECHNIQUE: Multiplanar multisequence MRI of the brain was performed. Both noninfused and contrast i nfused sequences were performed. IV Contrast injected was 20 cc Dotarem. COMPARISON: CR CHEST 2 VIEWS PA,LAT from 07/22/2015 FINDINGS: CEREBRAL PARENCHYMA: No evidence of intracranial hemorrhage, mass effect nor shift of midline structu re. No extraaxial fluid collections. Ventricles are not enlarged nor shifted. There is no significant focal signal abnormality in the cerebellar hemispheres nor within the lonnie, m idbrain, and thalami. There is no abnormal signal abnormality in the periventricular white matter. No evidence of restricted diffusion DWI to suggest recent ischemic event No abnormal signal susceptibility imaging. No evidence of microhemorrhages. There are no ring enhancing lesions in the brain. There is no abnormal meningeal enhancement. PITUITARY GLAND: No mass nor parasellar abnormality. No obvious abnormality in the cavernous sinuses. FLOW VOIDS: The expected flow void are noted. No evidence of obvious aneurysm nor obvious vascular ma lformation. PARANASAL SINUSES: The visualized paranasal sinuses appear unremarkable. ORBITS: No obvious abnormal findings. IMPRESSION: 1. No significant intracranial findings on this MRI scan of the brain. 2. No abnormal enhancing intracranial finding. DATA REPOSITORY:
[2021-11-12] MEDS: Gadoterate meglumine 20 ML VIAL IVP (10:50)
[2021-11-12] MEDS: Normal Saline Flush 10 ML SYR IVP (10:51)
== END 2021-11-12 02:23 ==
PROVIDERS: PCP Internal Medicine; Visit Provider Physician Assistant Medical
DX: G43.909 Migraine, unspecified, not intractable, without status migrainosus (principal); H53.9 Unspecified visual disturbance
CPT/HCPCS: 70553

== ENCOUNTER 2025-02-21 16:54 | Emergency (ER) | payer SELFPAY ==
[2025-02-21 16:55] VITALS: BP 141/88; PULSE 80; RESP 10; TEMP 36.4; O2SAT 97
--- NOTE | 2025-02-21 17:41 | ED.GENADUL_ITS ---
Discharge Plan Discharge Details Chief Complaint: PsychEval Clinical Impression: Depressed Primary Care Provider: Winifred Sierra ED Provider: Tanvir Boogie Home Meds and New Rx's Prescriptions: No Action levothyroxine 50 mcg Tablet 50 mcg PO DAILY folic acid 1 mg Tablet 4 mg PO DAILY lamotrigine [Lamictal] 100 mg Tablet 125 mg PO QHS fluoxetine [Prozac] 40 mg Capsule 20 mg PO DAILY clonidine HCl 0.1 mg Tablet 0.1 mg PO BID acetaminophen [Tylenol] 325 mg Tablet 650 mg PO Q6H PRNQty: 0 0RF hydroxyzine HCl 25 mg tablet 25 mg PO QID PRN prazosin 1 mg capsule 1 mg PO DAILY cholecalciferol (vitamin D3) [Vitamin D3] 10 mcg (400 unit) capsule 400 unit PO DAILY metformin 500 mg tablet 500 mg PO DAILY Patient Comments: takes at 1700. before meal albuterol 90 mcg/actuation aerosol 90 mcg inhalation .every 2 hours PRN HPI General Mode of arrival: ambulatory . Date/Time Provider Initiated Documentation: 02/21/25 16:59 . Limitations to Documentation: no limitations . Information obtained by: patient . History of Present Illness 34 year old F presents to the emergency department with the chief complaint of SI, described as moderate, Patient started experiencing this month(s) (1) and it has been constant. No relieving factors improve symptom(s), No exacerbating factors reported . Patient notes no other symptoms.. Patient did receive the following treatments prior to arrival, none Related Data Home Medications ?Medication ?Instructions ?Recorded ?Confirmed folic acid 1 mg tablet 4 mg PO DAILY 05/26/19 02/21/25 lamotrigine 100 mg tablet 125 mg PO QHS 05/26/19 02/21/25 (Lamictal) levothyroxine 50 mcg tablet 50 mcg PO DAILY 05/26/19 02/21/25 acetaminophen 325 mg tablet 650 mg (2 x 325 mg) PO Q6H PRN #0 05/20/20 02/21/25 (Tylenol) tabs fluoxetine 40 mg capsule (Prozac) 20 mg PO DAILY 08/05/20 02/21/25 clonidine HCl 0.1 mg tablet 0.1 mg PO BID 08/06/20 02/21/25 albuterol 90 mcg/actuation aerosol 90 mcg inhalation .every 2 hours 02/21/25 02/21/25 inhaler PRN cholecalciferol (vitamin D3) 10 400 unit PO DAILY 02/21/25 02/21/25 mcg (400 unit) capsule (Vitamin D3) hydroxyzine HCl 25 mg tablet 25 mg PO QID PRN 02/21/25 02/21/25 metformin 500 mg tablet 500 mg PO DAILY 02/21/25 02/21/25 prazosin 1 mg capsule 1 mg PO DAILY 02/21/25 02/21/25 Previous Rx's ?Medication ?Instructions ?Recorded acetaminophen 325 mg tablet 650 mg (2 x 325 mg) PO Q6H PRN #0 05/20/20 (Tylenol) tabs Allergies Allergy/AdvReac Type Severity Reaction Status Date / Time latex Allergy Mild Skin Rash Unverified 02/21/25 17:03 Latex, Natural Rubber Allergy Mild Skin Rash Unverified 02/21/25 17:03 erythromycin base Allergy Hives Unverified 02/21/25 17:03 sulfamethoxazole (From Allergy Hives Unverified 02/21/25 17:03 Bactrim) trimethoprim (From Bactrim) Allergy Hives Unverified 02/21/25 17:03 cigarette smoke AdvReac Mild head Unverified 02/21/25 17:03 congestion General Stated Complaint: PsychEval SHAI: 2 Review of Systems All systems reviewed & are unremarkable except as noted in HPI and below Constitutional Constitutional: Denies chills, Denies fever(s) and Denies weakness Cardiovascular Cardiovascular: Denies chest pain and Denies dyspnea Respiratory Respiratory: Denies cough and Denies dyspnea Gastrointestinal Gastrointestinal: Denies abdominal pain, Denies nausea and Denies vomiting Neurologic Neurologic: Denies weakness Psychiatric Psychiatric: Reports depression Exam Const General: no acute distress Orientation: alert [facility] Head: normal to inspection Ears: external ears normal General nose exam: external nose normal Mouth: moist mucous membranes Eyes General: appearance normal, both eyes and all related structures Neck Neck: normal visual inspection Resp Effort & Inspection: normal respiratory effort and able to speak in complete sentences Cardio Rate: regular rate Skin General skin exam: no rashes or lesions noted Neuro General: patient alert and patient oriented x3 Extrem General: normal to inspection Psych Appearance: well kempt Speech and Movement: speech and movement normal Attitude: cooperative Course Vital Signs Vital signs: Vital Signs Temperature 36.4 C 02/21/25 16:55 Pulse 80 02/21/25 16:55 Respiratory Rate 10 L 02/21/25 16:55 Blood Pressure 141/88 H 02/21/25 16:55 Pulse Oximetry 97 02/21/25 16:55 Temperature 36.4 C 02/21/25 16:55 Temperature Source Oral 02/21/25 16:55 Pulse 80 02/21/25 16:55 Respiratory Rate 10 L 02/21/25 16:55 Blood Pressure 141/88 H 02/21/25 16:55 Blood Pressure Position Sitting 02/21/25 16:55 Pulse Oximetry 97 02/21/25 16:55 Medical Decision Making 34-year-old female with a history of depression, comes in from a care bed with 1 month of worsening thoughts of self-harm. She has not attempted to harm her self and has a plan to overdose on her pills. She was screened prehospital by [facility] human services and the plan is for voluntary admission. She is calm and cooperative and speaking full sentences in no distress. She has normal gait, moving all extremities and normal strength. No fevers or chills. I doubt underlying medical process and she is medically cleared for psychiatric placement. I am can order screening labs while placement is pending in case the receiving facility wants to have labs done. Labs benign, plan for voluntary placement per crisis screener. Differential Diagnosis Differential Diagnosis: SI, depression Medical Records Medical records reviewed: Yes I reviewed the patient's medical records. Lab Data Lab results reviewed: Yes I reviewed the patient's lab results. Quality:SDOH Health Related Social Needs: Health related social needs problem related to primary support group (Z63.9), feeling lonely/isolated (Z60.8) Health related social needs details patient here with SI, domestic situation not stable. PFSH All Active Problems (Updated 02/21/25 @ 20:44 by Tanvir Boogie MD) Morbid obesity (Acute) Patient desires (Acute) Oligomenorrhea (Acute) Seizure-like activity (Acute) Hypothyroid (Chronic) Depressed (Acute) Medical History (Updated 02/21/25 @ 20:44 by Tanvir Boogie MD) Suicide attempt Chest pain Surgical History (Updated 06/07/22 @ 16:01 by Tia Rhoades MD) History of laparoscopy Jul 2017 With chromotubation and fulguration of endometriosis Hx laparoscopic cholecystectomy 10/14/17 H/O colonoscopy 05/28/18 H/O cystoscopy Jul 2018 ureterorenoscopy with retro pyelogram, stone manipulation and R stent placement History of appendectomy age 13 Social History Smoking/Tobacco Use Status: Never Smoking risk assessment performed?: Yes Drug use: Socially Substance use type: marijuana Housing: apartment In current or past relationships, have you been: made to feel afraid Do you feel safe at home: No Do you feel safe in your relationship?: No History Past Pregnancies Del. Date GA/Weeks # Preg Succ Route Wgt Sex Labor Lgth Anesth esia Location Prov Complic 10/20/16 8 No SAB 02/26/19 6 No MAB D&C w/ Dr. Leslie 06/16/19 8 No MAB D&C w/ Dr. Leslie
[2025-02-21] MEDS: metFORMIN 500 MG TAB PO (17:56)
[2025-02-21 18:03] LABS: Abs Immature Grans 0.02 10^3/uL (0.0-0.06); Absolute Basophil Count 0.02 10^3/uL (0.0-0.2); Absolute Eosinophil Count 0.03 10^3/uL (0.0-0.7); Absolute Lymphocyte Count 2.34 10^3/uL (1.2-3.4); Absolute Monocyte Count 0.41 10^3/uL (0.1-0.8); Absolute Neutrophil Count 4.69 10^3/uL (1.2-6.7); Basophils % 0.3 %; Eosinophils % 0.4 %; HCT 38.8 % (36.0-46.0); HGB 12.4 g/dL (11.2-15.7); Immature Grans % 0.3 %; Lymphocytes % 31.2 %; MCH 27.6 pg (27.0-33.0); MCV 86 fL (80-95); MPV 9.6 fL (8.0-11.0); Monocytes % 5.5 %; Neutrophils % 62.3 %; Platelet Count 253 10^3/uL (130-400); RDW 12.1 % (11.7-14.6); RDW-SD 38.4 fL; WBC 7.51 10^3/uL (4.4-10.8)
--- NOTE | 2025-02-21 18:09 | PDOC.MHCN_ITS ---
Date of service: 02/21/25 Time of Service: 16:50 PHQ-9 Over the last 2 weeks, how often have you been bothered by any of the following problems? 1. Little interest or pleasure in doing things: nearly every day 2. Feeling down, depressed, or hopeless: nearly every day 3. Trouble falling or staying asleep, or sleeping too much: nearly every day 4. Feeling tired or having little energy: nearly every day 5. Poor appetite or overeating: nearly every day 6. Feeling bad about yourself - or that you are a failure or have let yourself and your family down: nearly every day 7. Trouble concentrating on things, such as reading the newspaper or watching television: nearly every day 8. Moving or speaking so slowly that other people could have noticed? - Or the opposite - being so fidgety or restless that you have been moving around a lot more than usual: nearly every day 9. Thoughts that you would be better off or of hurting yourself in some way: nearly every day Total score: 27 If you checked off any problems, how difficult have these problems made it for you to do your work, take care of things at home, or get along with other people?: extremely difficult PHQ-9 Results: Positive Source: Developed by Drs. Serjio Dietz, Navya Sims, Leo Alston and colleagues, with an educational yuki from [employer]. Suicide Severity Rate CSSRS Have you wished you were or wished you could go to sleep and not wake up?: Yes Have you actually had any thoughts of killing yourself?: Yes CSSRS2 Have you been thinking about how you might do this?: Yes Have you had these thoughts and had some intention of acting on them?: Yes Have you started to work out or worked out the details of how to kill yourself? Do you intend to carry out this plan?: Yes CSSRS3 Have you ever done anything, started to do anything or prepared to do anything to end your life?: Yes CSSRS4 Was this within the past three months?: Yes Screening Score Total Score: 8 Screening: Positive Mental Health Emergency Note Release [facility] release signed:: Yes Reason for Visit Stacey is currently at the [facility] Carebed but this magazine writer and KAVYA Longoria were called in for a mobile crisis assessment as she is rating herself 10/10 with plan and intent to harm herself. Stacey does not feel safe and is wanting to seek a higher level of care. Stacey is known to both [facility] and this magazine writer as this magazine writer assessed her last week and submitted the carebed referral. Stacey was last inpatient at the beginning of January in [place]. but she was only there for three days. In the last 2 weeks has the pt presented for ES prior to today?: Unknown Client Information Client is: Adult Outpatient Well Housed: Yes Non Suicidal Self Injury Current: No History: No Safety Risk/Harm to Self or Others Current Ideation to Harm Self or Others: Yes to self. (Stacey reports SI with plan to overdose and rates herself 10/10 intent) Intent: yes, has intent. Plan: yes,has a plan. History of suicide attempt: yes,history of suicide attempt reported. Details of previous suicide attempt: Stacey has previously attem pted to overdose in attempt to end her life Risk: Does risk to harm exist?: No Risk: N/A Duty to warn indicated: No Asssessment/Mental Status Appearance: Disheveled Attitude: Cooperative Behavior: Unremarkable Speech: Normal Affect: Cogruent with mood Mood: Sad and Depressed Thought process: Unremarkable Hallucinations: No evidence Delusions: No evidence Attention: Unremarkable Perception: Not impaired Orientation: Fully orientated Memory: Intact Insight: Fair Judgement: Fair Neurovegetative Symptoms Sleep: No change Appetitie: Decrease Interests: No change Energy: No change Libido: Not applicable Substance Use: Do you use nicotine?: No Have you used substances in the last 7 days?: No Additional Issues: Assaultive/Threatening Behavior: No Medical Concerns: No Client engaged in active self harm w/weapon: No Threatening to run away: No Child reported abuse/neglect: No Voluntarily presenting for services: Yes Domestic violence is a concern: No Extreme Psychosis or extreme behavior is present: No Impression Stacey is a [age] year old, , female who resides with her in [place], [place] but has been staying with her sister since being released from [facility] at the beginning of January from inpatient psychiatric care. Stacey was seen by this magazine writer last week at the [facility] and a Carebed referral was completed. Stacey has been at the Carebed since Friday and reports that she is not getting better. Stacey reports that she has been thinking about ending her life everyday. Stacey reports last Friday she went with her parents to [place] and contemplated stepping in front of traffic. Stacey reports today her plan would be to overdose and if she had access to her medications she reports she would do it. Stacey rates herself 10/10 intent. Stacey reports yesterday she had a flashback before going to bed and she has been struggling since. Stacey slept alright, but has not eaten anything today. Stacey reports that she is hesitant to a higher level of care but she thinks she needs it. Stacey called and spoke with her sister on the phone to get her opinion as well. Stacey and this magazine writer discussed the possibility of a safety plan to remain at the [facility] and we also discussed going to inpatient then discharging to [facility]. Stacey would like to go to inpatient treatment and then discharge to the [facility]. Plan/Disposition Recommended Disposition: Hospitalization facilities contacted. Plan: Stacey will go from the [facility] to the ED to seek voluntary inpatient treatment. Stacey will be assessed once daily until placed. Person reported agreement to plan: Yes Reports/communication Outcome discussed with: ED/Personnel
[2025-02-21 18:32] LABS: ALT 45 U/L (14-59); AST 26 U/L (15-37); Alkaline Phosphatase 77 U/L (46-116); Anion Gap 6.8 mmol/L (3-11); BUN 14 mg/dL (7-18); Bilirubin, Total 0.7 mg/dL (0.2-1.0); CO2 29.2 mmol/L (21.0-32.0); CREATININE 0.9 mg/dL (0.55-1.02); Calcium 9.6 mg/dL (8.5-10.1); Chloride 103 mmol/L (98-107); Estimated GFR 87.11 (mL/min/1.73m2); Glucose 96 mg/dL (74-106); Magnesium 1.3 mg/dL (1.8-2.4); Potassium 3.6 mmol/L (3.5-5.1); Sodium 139 mmol/L (136-145); TSH (W/Ref FT4) 0.93 uIU/mL (0.36-3.74); Total Protein 7.7 g/dL (6.4-8.2)
[2025-02-21 18:33] LABS: ETHANOL BLOOD < 3.0 mg/dL (<10)
[2025-02-21 21:15] LABS: Bilirubin Negative (Negative); Blood Negative (Negative); Clarity Clear (Clear); Glucose Negative (Negative); Ketones Trace mg/dL (Negative); Leukocyte Esterase Negative (Negative); Nitrite Negative (Negative); Specific Gravity >= 1.030 (1.005-1.025); Urobilinogen 0.2 mg/dL (Up to 0.2); pH 5.5 (5-8)
[2025-02-21 21:27] LABS: *AMPHETAMINES SCREEN URINE Negative (Negative); *BARBITURATES SCREEN URINE Negative (Negative); *BENZODIAZEPINES SCREEN URINE Negative (Negative); Cannabinoids THC Positive (Negative); Cocaine Screen,Urine Negative (Negative); METHADONE URINE SCREEN Negative (Negative); OPIATES URINE SCREEN Negative (Negative)
[2025-02-21 21:29] LABS: Tricyclic Antidepressants Negative (Negative)
[2025-02-21] MEDS: lamoTRIgine 100 MG TAB 150 MG PO (23:23)
[2025-02-21] MEDS: hydrOXYzine HCL 25 MG TAB PO (23:23)
[2025-02-21] MEDS: Prazosin 1 MG CAP 3 MG PO (23:30)
[2025-02-22] MEDS: Magnesium Oxide 400 MG TAB PO (00:11)
--- NOTE | 2025-02-22 06:08 | ED.PROG_ITS ---
Date of service: 02/22/25 Time of Service: 06:09 Medical Decision Making Patient comes from care bed, patient was stable throughout the night, slept well with no interventions needed. Multiple discrepancies are noted from what the patient says versus what the care bed had been giving for medications. Currentl y pending placement and voluntary. Quality:SDOH Health Related Social Needs: Health related social needs problem related to primary support group (Z63.9), feeling lonely/isolated (Z60.8) Health related social needs details patient here with SI, domestic situation not stable. Discharge Plan Discharge Details Chief Complaint: PsychEval Clinical Impression: Depressed Primary Care Provider: Winifred Sierra ED Provider: Broderick Haque Home Meds and New Rx's Prescriptions: No Action levothyroxine 50 mcg Tablet 75 mcg PO DAILY folic acid 1 mg Tablet 4 mg PO QAM lamotrigine [Lamictal] 100 mg Tablet 125 mg PO QHS fluoxetine [Prozac] 40 mg Capsule 20 mg PO DAILY clonidine HCl 0.1 mg Tablet 0.1 mg PO BID acetaminophen [Tylenol] 325 mg Tablet 650 mg PO Q6H PRNQty: 0 0RF hydroxyzine HCl 25 mg tablet 25 mg PO QID PRN prazosin 1 mg capsule 1 mg PO DAILY Patient Comments: pt states they only take 1mg at HS cholecalciferol (vitamin D3) [Vitamin D3] 10 mcg (400 unit) capsule 400 unit PO DAILY metformin 500 mg tablet 500 mg PO DAILY Patient Comments: takes at 1700. before meal albuterol 90 mcg/actuation aerosol 90 mcg inhalation .every 2 hours PRN fluoxetine 20 mg capsule 20 mg PO QAM olmesartan 20 mg tablet 20 mg PO DAILY phentermine 37.5 mg capsule 37.5 mg PO QAM Rx Instructions: Take 1 cap PO every morning at least 1 hour after meals ibuprofen 200 mg capsule See Rx Instructions PO Q4H PRN Rx Instructions: 1-2 tabs q 4-6 hours PRN;
--- NOTE | 2025-02-22 07:24 | W.EDPROG ---
Date of service: 02/22/25 Time of Service: 07:24 Medical Decision Making I received signout on this 34-year-old female in the emergency department voluntarily. Patient comes from care bed, patient was stable throughout the night, slept well with no interventions needed. Multiple discrepancies are noted from what the patient says versus what the care bed had been giving for medications. Currently pending placement and voluntary. Will update documentation as clinically warranted and signed patient out to the evening provider. 4:45 PM No active behavioral issues last shift. Patient signed out to the evening provider. Quality:SDOH Health Related Social Needs: Health related social needs problem related to primary support group (Z63.9), feeling lonely/isolated (Z60.8) Health related social needs details patient here with SI, domestic situation not stable. Discharge Plan Discharge Details Chief Complaint: PsychEval Clinical Impression: Depressed Primary Care Provider: Winifred Sierra ED Provider: Gomez Marrufo [place] Meds and New Rx's Prescriptions: No Action levothyroxine 50 mcg Tablet 75 mcg PO DAILY folic acid 1 mg Tablet 4 mg PO QAM lamotrigine [Lamictal] 100 mg Tablet 125 mg PO QHS fluoxetine [Prozac] 40 mg Capsule 20 mg PO DAILY clonidine HCl 0.1 mg Tablet 0.1 mg PO BID acetaminophen [Tylenol] 325 mg Tablet 650 mg PO Q6H PRNQty: 0 0RF hydroxyzine HCl 25 mg tablet 25 mg PO QID PRN prazosin 1 mg capsule 1 mg PO DAILY Patient Comments: pt states they only take 1mg at HS cholecalciferol (vitamin D3) [Vitamin D3] 10 mcg (400 unit) capsule 400 unit PO DAILY metformin 500 mg tablet 500 mg PO DAILY Patient Comments: takes at 1700. before meal albuterol 90 mcg/actuation aerosol 90 mcg inhalation .every 2 hours PRN fluoxetine 20 mg capsule 20 mg PO QAM olmesartan 20 mg tablet 20 mg PO DAILY phentermine 37.5 mg capsule 37.5 mg PO QAM Rx Instructions: Take 1 cap PO every morning at least 1 hour after meals ibuprofen 200 mg capsule See Rx Instructions PO Q4H PRN Rx Instructions: 1-2 tabs q 4-6 hours PRN;
[2025-02-22 09:42] VITALS: BP 132/88; PULSE 82; TEMP 36.6; O2SAT 95
[2025-02-22] MEDS: Levothyroxine 50 MCG TAB PO (09:49)
[2025-02-22] MEDS: Cholecalciferol (Vitamin D3) 400 UNIT TAB PO (09:49)
[2025-02-22] MEDS: FLUoxetine 20 MG CAP PO (09:51)
[2025-02-22] MEDS: Prazosin 1 MG CAP PO ×2 (09:52→21:59)
[2025-02-22] MEDS: cloNIDine 0.1 MG TAB PO (12:04)
[2025-02-22] MEDS: Folic Acid 1 MG TAB 4 MG PO (12:05)
[2025-02-22] MEDS: Magnesium Oxide 400 MG TAB 800 MG PO ×2 (12:05→20:34)
--- NOTE | 2025-02-22 14:54 | MHPN_ITS ---
Date of service: 02/22/25 Time of Service: 10:30 Mental Health Emergency Note Release [facility] release signed:: Yes Reason for Visit The client endorced 07/29 with a plan yesterday. In the last 2 weeks has the pt presented for ES prior to today?: No Client Information Client is: Adult Outpatient Well Housed: Yes Non Suicidal Self Injury Current: No History: yes, The client shared that she has overdosed before. Safety Risk/Harm to Self or Others Current Ideation to Harm Self or Others: Yes to self. Intent: no, has no intent. Plan: no.does not have a plan. Risk: Does risk to harm exist?: yes. Risk: Low Risk Duty to warn indicated: No Asssessment/Mental Status Appearance: Unremarkable Neurovegetative Symptoms Appetitie: No change Interests: No change Energy: No change Libido: No change Additional Issues: Assaultive/Threatening Behavior: No Medical Concerns: No Client engaged in active self harm w/weapon: No Threatening to run away: No Child reported abuse/neglect: No Voluntarily presenting for services: Yes Domestic violence is a concern: No Extreme Psychosis or extreme behavior is present: No Impression This client is a 34 year old, , female who resides with her in [place], [place] but has been staying with her sister since being released from [facility] at the beginning of January from inpatient psychiatric care. She was seen by CORNEL Osman last week at the [facility] and a Care bed referral was completed. The client has been at the Care bed since Friday and reports that she is not getting better. She reports that she has been thinking about ending her life everyday. The client reports last Friday she went with her parents to [place] and contemplated stepping in front of traffic. She reports yesterday her plan would be to overdose and if she had access to her medications she reports she would do it. The rates herself 10/29 intent. The client reports Friday she had a flashback before going to bed and she has been struggling since. She slept alright, and ate breakfast. The client reports that she is hesitant to a higher level of care. The client would no longer like to go to inpatient as she feels that she is doing better after speaking with her sister. This telegraphic typewriter repairer asked what about that conversation changed how she feels as she lives with her sister and she was in the care bed. The client said that she just had a lot going on and talking with her sister helps her. This telegraphic typewriter repairer consulted with the initial ES clinician that assessed her and they stated that she is going inpatient as they have an EE on standby due to the client's intent and plan yesterday. The client is currently in Zone B ED to seek voluntary inpatient treatment. She will need to be assessed once daily until placed. Resources [facility] reviewed and given:: [facility] Plan/Disposition Recommended Disposition: Hospitalization facilities contacted. Plan: The client is to wait in Zone B until she is accepted to an inpatient facility. Person reported agreement to plan: Yes Reports/communication Outcome discussed with: ED/Personnel
--- NOTE | 2025-02-22 16:04 | PDOC.CMSAFE ---
Date of service: 02/22/25 Time of Service: 16:04 Care Management Safety Plan Status Status: Voluntary Reason for Wait Reason for Wait: Inpatient Admission Safety Plan Safety Plan: VOLUNTARY FOR INPATIENT PSYCHIATRIC STABILIZATION.? Patient is appropriate in all interactions since arriving at [facility]; Pt has demonstrated appropriate coping and communication skills, has articulated his or her needs and concerns and is fully engaged during staff interactions. Safety plan has been established with patient, and care team, to adhere to patient goals, identify restrictions based on behavioral status, address nutrition, and determine allowed personal belongings, tools for hygiene and personal care. Determine level of activity including ambulation, level of supervision, visitors, and determine privileges based on behaviors and level of engagement by pt. VOLUNTARY SAFETY PLAN: 1. Will remain on suicide precautions, in paper clothes 2. Will remain in Zone B under direct supervision of one-on-one staff at all times provided by [employer]; [employer], COMMUNICATIONS SCIENTIST vulcanizer operator. 3. May have paper cups, plates, finger foods as well as a cardboard spoon with which to eat meals. 4. Follow [facility] Management of the Admitted Behavioral Health Patient policy. 5. Shower available in Zone B without restriction. 6. Personal belongings-soft items permitted at RN discretion. 7. Visitors- supportive visitors, at RN discretion. 8. Activities: soft cart items, hospital tablets (Netflix/[employer]+/music) approved per RN discretion. 9.? Bathroom available in Zone B without restriction. 10. Phone: limited to [facility] cordless phone at RN discretion. Due to VOLUNTARY status, if patient wishes to leave [facility], staff will contact [facility] Crisis Screener ([phone]) and Selling Underwriter ([phone]) as soon as possible. In the event of elopement, notify [facility] Police ([phone]). Patient is currently voluntarily at [facility] and seeking inpatient admission when a bed becomes available. [facility] Frontline Buyer Renter will continue seeking placement. Please contact the Selling Underwriter ([phone]) and [facility] Buyer Renter ([phone]) for any needed changes in the Safety Plan. Safety plan has been provided to interdepartmental care team.
--- NOTE | 2025-02-22 16:06 | PDOC.CMPRO ---
Date of service: 02/22/25 Time of Service: 16:06 Care Management Progress Note Progress Note Text Progress Note Text: CM huddled with ED and [facility] staff to discuss Stacey's plan of care. Per RN, she has been appropriate and cooperative, mostly staying in her room. Per [facility], Stacey reported that her SI was 10/10 yesterday, and today it is only 1/10, and she wants to go home. [facility] expressed concern about this dramatic difference, and does not feel comfortable creating a safety plan for her to discharge back to the community. Stacey agreed to remain voluntarily. Stacey does not currently have insurance; CM requested support from [employer] to help her obtain insurance. Per [employer], she is over income for [employer], but may enroll in a qualified health plan. Per report, her may be able to enroll her in his insurance plan through work; he is looking into the cost difference. CM asked [facility] to reach out to [facility] care management, as lack of insurance may be a barrier to placement. Stacey is currently voluntary, seeking inpatient psychiatric treatment. Referrals were sent; Safety plan in place. CM will continue to follow. Social Determinants of Health Screening Social Determinants of health last assessed in clinic: 02/22/25 Will the Patient Participate in the Screening?: Yes Do you worry about having a steady place to live?: no Problems where you live: no known problems In the past 12 months, have you had to go without electric, gas, oil or water in your home?: no 1. Within the past 12 months, we worried whether our food would run out before we got money to buy more.: Don't know/refused 2. Within the past 12 months, the food we bought just didn't last and we didn't have money to get more.: Don't know/refused Has lack of transportation kept you from medical appointments or from doing things needed for daily living?: no Has anyone in your life made you feel unsafe or unsupported?: yes How often does anyone, including family and friends, physically hurt you?: Never How often does anyone, including family and friends, insult or talk down to you?: Frequently How often does anyone, including family and friends, threaten you with harm?: Sometimes How often does anyone, including family and friends, scream or curse at you?: Frequently HRSN Safety total score: 14 How hard is it for you to pay for the very basics like food, housing, medical care, and heating? Would you say it is:: Not hard at all Do you want help finding or keeping work or a job?: I do not need or want help If for any reason you need help with day-to-day activities such as bathing, preparing meals, shopping, managing finances, etc., do you get the help you need?: I don?t need any help How often do you feel lonely or isolated from those around you?: Always Do you speak a language other than Bengali at home?: No Does the patient want assistance with any of the above?: No Health Related Social Needs Health related social needs: problem related to primary support group (Z63.9) and feeling lonely/isolated (Z60.8) Health related social needs details: patient here with SI, domestic situation not stable.
[2025-02-22] MEDS: hydrOXYzine HCL 25 MG TAB PO ×2 (16:18→22:32)
[2025-02-22] MEDS: metFORMIN 500 MG TAB PO (17:07)
[2025-02-22] MEDS: lamoTRIgine 25 MG TAB 125 MG PO (20:33)
[2025-02-22] MEDS: Acetaminophen 325 MG TAB 650 MG PO (20:35)
[2025-02-22 20:38] VITALS: BP 132/88; PULSE 94; TEMP 36.5
--- NOTE | 2025-02-23 07:18 | W.EDPROG ---
Date of service: 02/23/25 Time of Service: 07:18 Medical Decision Making Patient is still seeking voluntary placement for thoughts of self-harm, no new acute complaints. Will continue to monitor until safe disposition found Quality:SDOH Health Related Social Needs: Health related social needs problem related to primary support group (Z63.9), feeling lonely/isolated (Z60.8) Health related social needs details patient here with SI, domestic situation not stable. Discharge Plan Discharge Details Chief Complaint: PsychEval Clinical Impression: Depressed Primary Care Provider: [facility] ED Provider: Tanvir Boogie Home Meds and New Rx's Prescriptions: No Action levothyroxine 50 mcg Tablet 75 mcg PO DAILY folic acid 1 mg Tablet 4 mg PO QAM lamotrigine [Lamictal] 100 mg Tablet 125 mg PO QHS fluoxetine [Prozac] 40 mg Capsule 20 mg PO DAILY clonidine HCl 0.1 mg Tablet 0.1 mg PO BID acetaminophen [Tylenol] 325 mg Tablet 650 mg PO Q6H PRNQty: 0 0RF hydroxyzine HCl 25 mg tablet 25 mg PO QID PRN prazosin 1 mg capsule 1 mg PO DAILY Patient Comments: pt states they only take 1mg at HS cholecalciferol (vitamin D3) [Vitamin D3] 10 mcg (400 unit) capsule 400 unit PO DAILY metformin 500 mg tablet 500 mg PO DAILY Patient Comments: takes at 1700. before meal albuterol 90 mcg/actuation aerosol 90 mcg inhalation .every 2 hours PRN fluoxetine 20 mg capsule 20 mg PO QAM olmesartan 20 mg tablet 20 mg PO DAILY phentermine 37.5 mg capsule 37.5 mg PO QAM Rx Instructions: Take 1 cap PO every morning at least 1 hour after meals ibuprofen 200 mg capsule See Rx Instructions PO Q4H PRN Rx Instructions: 1-2 tabs q 4-6 hours PRN;
[2025-02-23] MEDS: Cholecalciferol (Vitamin D3) 400 UNIT TAB PO (08:53)
[2025-02-23] MEDS: Magnesium Oxide 400 MG TAB 800 MG PO (08:54)
[2025-02-23] MEDS: Levothyroxine 50 MCG TAB PO (08:54)
[2025-02-23] MEDS: Folic Acid 1 MG TAB 4 MG PO (08:54)
[2025-02-23] MEDS: FLUoxetine 20 MG CAP PO (08:54)
[2025-02-23 09:05] VITALS: BP 121/81; PULSE 87; RESP 18; TEMP 36.8; O2SAT 99
[2025-02-23] MEDS: cloNIDine 0.1 MG TAB PO (11:56)
--- NOTE | 2025-02-23 12:16 | ED.PROG_ITS ---
Date of service: 02/23/25 Time of Service: 12:16 Medical Decision Making Patient met with mental health and since has been here and been cooperative for the most part and not having SI they have decided to safety plan at home and her family is comfortable with this. She will follow-up with her mental health pr actitioners and PCP. Quality:SDOH Health Related Social Needs: Health related social needs problem related to primary support group (Z63.9), feeling lonely/isolated (Z60.8) Health related social needs details patient here with SI, domestic situation not stable. Discharge Plan Disposition Patient Disposition: Home Condition: Stable Discharge Details Clinical Impression: Depressed Primary Care Provider: [facility] ED Provider: Tanvir Boogie Home Meds and New Rx's Prescriptions: Continued levothyroxine 50 mcg Tablet 75 mcg PO DAILY folic acid 1 mg Tablet 4 mg PO QAM lamotrigine [Lamictal] 100 mg Tablet 125 mg PO QHS clonidine HCl 0.1 mg Tablet 0.1 mg PO BID acetaminophen [Tylenol] 325 mg Tablet 650 mg PO Q6H PRNQty: 0 0RF hydroxyzine HCl 25 mg tablet 25 mg PO QID PRN prazosin 1 mg capsule 1 mg PO DAILY Patient Comments: pt states they only take 1mg at HS cholecalciferol (vitamin D3) [Vitamin D3] 10 mcg (400 unit) capsule 400 unit PO DAILY metformin 500 mg tablet 500 mg PO DAILY Patient Comments: takes at 1700. before meal albuterol 90 mcg/actuation aerosol 90 mcg inhalation .every 2 hours PRN fluoxetine 20 mg capsule 20 mg PO QAM phentermine 37.5 mg capsule 37.5 mg PO QAM Rx Instructions: Take 1 cap PO every morning at least 1 hour after meals ibuprofen 200 mg capsule See Rx Instructions PO Q4H PRN Rx Instructions: 1-2 tabs q 4-6 hours PRN; Discontinued fluoxetine [Prozac] 40 mg Capsule 20 mg PO DAILY olmesartan 20 mg tablet 20 mg PO DAILY Discharge Instructions Additional Instructions: Please follow-up with your primary care provider and also your mental health providers. If you feel more ill or have worsening thoughts of self-harm return to the emergency department for reevaluation.
--- NOTE | 2025-02-23 16:36 | CMPROGNOTE_ITS ---
Date of service: 02/23/25 Time of Service: 16:36 Care Management Progress Note Progress Note Text Progress Note Text: Stacey met with [facility] today, and together they created a safety plan. She was discharged to the community, in the care of her sister. During the day she will be with her parents, who are also supportive. She has a PCP appointment on Friday, and scheduled follow up with [facility] in [place]. She was agreeable to this plan. Social Determinants of Health Screening Social Determinants of health last assessed in clinic: 02/23/25 Will the Patient Participate in the Screening?: Yes Do you worry about having a steady place to live?: no Problems where you live: no known problems In the past 12 months, have you had to go without electric, gas, oil or water in your home?: no 1. Within the past 12 months, we worried whether our food would run out before w e got money to buy more.: Don't know/refused 2. Within the past 12 months, the food we bought just didn't last and we didn't have money to get more.: Don't know/refused Has lack of transportation kept you from medical appointments or from doing things needed for daily living?: no Has anyone in your life made you feel unsafe or unsupported?: yes How often does anyone, including family and friends, physically hurt you?: Never How often does anyone, including family and friends, insult or talk down to you?: Frequently How often does anyone, including family and friends, threaten you with harm?: Sometimes How often does anyone, including family and friends, scream or curse at you?: Frequently [facility] Safety total score: 14 How hard is it for you to pay for the very basics like food, housing, medical care, and heating? Would you say it is:: Not hard at all Do you want help finding or keeping work or a job?: I do not need or want help If for any reason you need help with day-to-day activities such as bathing, preparing meals, shopping, managing finances, etc., do you get the help you need?: I don?t need any help How often do you feel lonely or isolated from those around you?: Always Do you speak a language other than [place] at home?: No Does the patient want assistance with any of the above?: No Health Related Social Needs Health related social needs: problem related to primary support group (Z63.9) and feeling lonely/isolated (Z60.8) Health related social needs details: patient here with SI, domestic situation not stable.
--- NOTE | 2025-02-23 16:38 | PDOC.MHPN2 ---
Date of service: 02/23/25 Time of Service: 23:00 Mental Health Emergency Note Release [facility] release signed:: Yes Reason for Visit Client was 07/29. In the last 2 weeks has the pt presented for ES prior to today?: No Client Information Client is: Adult Outpatient Well Housed: Yes Non Suicidal Self Injury Current: Yes, Client is no longer SI. History: yes, Client is no longer SI Additional Issues: Voluntarily presenting for services: Yes Impression The client was safety planned home with a folllow up with [facility] on Friday at 2pm and with her PCP Wednesday 02/28 at 4:40pm. Plan/Disposition Recommended Disposition: PCP/Office visit and [facility] Services [facility] Services: Therapy. Person reported agreement to plan: Yes Reports/communication Outcome discussed with: ED/Personnel
== END 2025-02-23 14:06 | disposition home or self-care (01) ==
PROVIDERS: Emergency Provider Emergency Medicine; PCP Internal Medicine
DX: F32.A Depression, unspecified (principal); R45.851 Suicidal ideations; Z63.9 Problem related to primary support group, unspecified; Z60.8 Other problems related to social environment
CPT/HCPCS: 99285 ×2; 81025; 00123; 36415; 80053; 80307; 96127; 80320; 81003; 83735; 84443; 85025; J3490